=== PATIENT | female | born 1950 | race Caucasian/White ===

== ENCOUNTER 2017-02-27 11:15 | Inpatient (IN) | payer OTHER, BC ==
[2017-02-27] MEDS ORDERED: NS 1,000 ML IV ONE ×2 (11:37→12:52)
[2017-02-27 11:46] LABS: % IMMATURE GRANULYOCYTES 1.1 % (0.0-1.1); ABSOLUTE IMMATURE GRANULOCYTES 0.16 10^3/uL (0.00-0.10); ADD DIFF? NO; ADD MORPH? NO; ADD SCAN? NO; ATYPICAL LYMPHOCYTE FLAG 0 (0-99); FRAGMENT RBC FLAG 0 (0-99); HEMATOCRIT 28.6 % (38.0-47.0); HEMOGLOBIN 9.8 g/dL (12.6-16.3); LEFT SHIFT FLG 0 (0-99); LIPEMIA HEMOLYSIS FLAG 90 (0-99); MEAN CELL HEMOGLOBIN 30.4 pg (27.9-34.1); MEAN CELL HEMOGLOBIN CONCENTR. 34.3 g/dL (32.4-36.7); MEAN CELL VOLUME 88.8 fL (81.5-99.8); PLATELET CLUMPS FLAG 10 (0-99); PLATELET COUNT 197 10^3/uL (150-400); RED BLOOD CELL COUNT 3.22 10^6/uL (4.18-5.33); RED CELL DISTRIBUTION WIDTH 14.5 % (11.5-15.2)
--- NOTE | 2017-02-27 11:47 | CPEKG ---
Heart Rate: 91 RR Interval: 659 P-R Interval: 152 QRSD Interval: 88 QT Interval: 388 QTC Interval: 478 P [place]: 74 QRS [place]: 54 T Wave [place]: 41 EKG Severity - BORDERLINE ECG - EKG Impression: SINUS RHYTHM EKG Impression: BORDERLINE INFERIOR Q WAVES Electronically Signed By: Brenden Cormier 27-Feb-2017 15:46:00
[2017-02-27] MEDS ORDERED: PANTOPRAZOLE SODIUM 80 MG in NS 100 ML IV ONE ×2 (11:57→15:53)
[2017-02-27 12:00] LABS: ALANINE AMINOTRANSFERASE 24 IU/L (9-52); ALBUMIN 3.7 g/dL (3.5-5.0); ALKALINE PHOSPHATASE 51 IU/L (38-126); ANION GAP 16 mEq/L (8-16); ASPARTATE AMINOTRANSFERASE 20 IU/L (14-46); BILIRUBIN,TOTAL 0.6 mg/dL (0.1-1.4); CALCIUM 8.6 mg/dL (8.5-10.4); CARBON DIOXIDE 16 mEq/l (22-31); CHLORIDE 104 mEq/L (97-110); CREATININE 0.6 mg/dL (0.6-1.0); GLOMERULAR FILTRATION RATE > 60; GLUCOSE 151 mg/dL (70-100); POTASSIUM 4.4 mEq/L (3.5-5.2); SODIUM 136 mEq/L (134-144); TOTAL PROTEIN 6.2 g/dL (6.3-8.2)
--- NOTE | 2017-02-27 12:01 | EDPHY ---
H & P Stated Complaint: BLACK STOOLS, WEAK AND DIZZY, FELL YESTERDAY AM Time Seen by Provider: 02/27/17 11:41 HPI/ROS: This patient presents after AP 5 day or so history of dark tarry stools that she thought was from eating bear ease she had a syncopal episode at 4:00 a.m.. She explains that yesterday she started feeling lightheaded orthostatics symptoms when she was upright that improved when she was seated or lying down and then 4:00 a.m. when she got up to go to the bathroom she developed lightheadedness followed by a syncopal episode. She lives alone and she awakened on the floor and then crawled to the bathroom and had another dark tarry stool. She has associated nausea but no vomiting. She reports associated generalized weakness and her friend that brought her in for evaluation reports that she appears more pale than usual today. ROS: Constitutional: Patient felt well until the last 2 days. She reports fatigue as above. HEENT: No complaints she did not strike her head and does not have a headache Pulmonary: No dyspnea. No cough. Cardiovascular: She has not noticed any heart palpitations. No chest pain. GI: No abdominal pain. She does not use NSAIDs. : No complaints Integumentary: Pale skin. No rash. Endocrine: No complaints Neuro: No numbness tingling weakness. No confusion. 10 point ROS is otherwise negative Source: Patient Exam Limitations: No limitations - Personal History Current Tetanus Diphtheria and Acellular Pertussis (TDAP): Yes Tetanus Vaccine Date: < 10 YEARS - Medical/Surgical History Hx Asthma: No Hx Chronic Respiratory Disease: No Hx Diabetes: No Hx Cardiac Disease: No Hx Renal Disease: No Hx Cirrhosis: No Hx Alcoholism: No Hx HIV/AIDS: No Hx Splenectomy or Spleen Trauma: No Other PMH: BAT EXPOSURE, R HIP REPLACEMENT, TUBAL LIGATION - Family History Significant Family History: No pertinent family hx - Social History Smoking Status: Never smoked Alcohol Use: None Drug Use: None Additional Social History: Patient is a . Her from cancer 1 month ago. She lives alone. - Physical Exam Exam: Initial pulses are on 100 initial systolic blood pressure 110 to 115. Other vitals normal After 500 cc normal saline her systolic pressure has improved to 160 on her pulse is in 80s. General Appearance: Alert, no distress. Eyes: Pupils equal and round no pallor or injection. ENT, Mouth: Mucous membranes moist. Respiratory: There are no retractions, lungs are clear to auscultation. Cardiovascular: Regular rate and rhythm. Patient has a 2/6 systolic murmur no JVD. No peripheral edema. Gastrointestinal: Abdomen is soft and nontender, no masses, bowel sounds normal. Rectal exam: No hemorrhoids. No tenderness or masses. She has melena-dark tarry stool that is heme-positive on guaiac testing. Neurological: GCS 15 with no focal sensory motor deficits Skin: Warm and dry, no rashes, pale Musculoskeletal: Neck is supple nontender. Extremities are symmetrical, full range of motion. Psychiatric: Mood and affect normal DIFFERENTIAL DIAGNOSIS: After history and physical exam differential diagnosis was considered for upper GI bleed, colon CA, gastric CA, anemia, dysrhythmia, mi Constitutional: Initial Vital Signs O2 Sat (%) 100 02/27/17 11:20 O2 Delivery Mode Room Air O2 (L/minute) 2 Allergies/Adverse Reactions: No Known Allergies Allergy (Unverified 02/27/17 11:46) Home Medications: Medication Instructions Recorded NK [No Known Home Meds] 02/27/17 Medical Decision Making - Diagnostics EKG Interpretation: 12 lead EKG performed at 11:45 a.m. reveals sinus rhythm at 91 Intervals: Normal throughout [place]: Normal throughout ST segments: Normal throughout overall assessment normal sinus rhythm without evidence of acute ischemia by my interpretation ED Course/Re-evaluation: IV normal saline bolus Protonix 80 mg IV Hospitalist and GI specialist paged at noon. I spoke with Dr. Gordon Enriquez- hospitalist accepts the patient Dr. Londono in for admission. I spoke with Angel Johnson.-GI doc on-call Shortly after finishing her 1st L and shortly after conversation with Dr. Johnson the patient developed some hemodynamic instability with pulse increasing to the low 1 teens and systolic pressure down to 96 2nd L started 2nd line is established. 200 mL into her 2nd L patient's systolic pressure is 116. She remains mildly tachycardic. I spoke with Rowena Bay-emergency physician at [facility] accepts the patient for direct transfer and we spoke with the house [facility] to requests an ICU bed I spoke with Dr. Johnson regarding the change in disposition plan to the ICU. At the time of EMS arrival patient's systolic pressure is improved to 116 to 122. Her pulse remains 100-110. Patient complains of generalized weakness but no other new complaints. Nausea controlled with Zofran. Discussion: Unstable GI bleed with melena anemia going to emergency department enroute to ICU pending issue bed for definitive treatment by Dr. Johnson- shark biologist. - Data Points Laboratory Results: Laboratory Results 02/27/17 11:30 02/27/17 11:30 02/27/17 02/27/17 02/27/17 11:30 11:30 11:30 WBC RBC Hgb Hct MCV MCH MCHC RDW Plt Count MPV Neut % (Auto) Lymph % (Auto) [place] % (Auto) Eos % (Auto) Baso % (Auto) Nucleat RBC Rel Count Absolute Neuts (auto) Absolute Lymphs (auto) Absolute Monos (auto) Absolute Eos (auto) Absolute Basos (auto) Absolute Nucleated RBC Immature Gran % Immature Gran # PT INR APTT Sodium Potassium Chloride Carbon Dioxide Anion Gap BUN Creatinine Estimated GFR Glucose Calcium Total Bilirubin AST ALT Alkaline Phosphatase Troponin I < 0.012 ng/mL ng/mL (0-0.034) Total Protein Albumin Stool Occult Bld Scrn POSITIVE H (NEGATIVE) Patient ABO/Rh O POSITIVE Antibody Screen NEGATIVE Crossmatch IS Only See Detail 02/27/17 02/27/17 02/27/17 11:30 11:30 11:30 WBC 14.77 10^3/uL H 10^3/uL (3.80-9.50) RBC 3.22 10^6/uL L 10^6/uL (4.18-5.33) Hgb 9.8 g/dL L g/dL (12.6-16.3) Hct 28.6 % L % (38.0-47.0) MCV 88.8 fL fL (81.5-99.8) MCH 30.4 pg pg (27.9-34.1) MCHC 34.3 g/dL g/dL (32.4-36.7) RDW 14.5 % % (11.5-15.2) Plt Count 197 10^3/uL 10^3/uL (150-400) MPV 10.0 fL fL (8.7-11.7) Neut % (Auto) 83.7 % H % (39.3-74.2) Lymph % (Auto) 12.2 % L % (15.0-45.0) [place] % (Auto) 2.9 % L % (4.5-13.0) Eos % (Auto) 0.0 % L % (0.6-7.6) Baso % (Auto) 0.1 % L % (0.3-1.7) Nucleat RBC Rel Count 0.0 % % (0.0-0.2) Absolute Neuts (auto) 12.36 10^3/uL H 10^3/uL (1.70-6.50) Absolute Lymphs (auto) 1.80 10^3/uL 10^3/uL (1.00-3.00) Absolute Monos (auto) 0.43 10^3/uL 10^3/uL (0.30-0.80) Absolute Eos (auto) 0.00 10^3/uL L 10^3/uL (0.03-0.40) Absolute Basos (auto) 0.02 10^3/uL 10^3/uL (0.02-0.10) Absolute Nucleated RBC 0.00 10^3/uL 10^3/uL (0-0.01) Immature Gran % 1.1 % % (0.0-1.1) Immature Gran # 0.16 10^3/uL H 10^3/uL (0.00-0.10) PT 13.8 SEC SEC (12.0-15.0) INR 1.09 (0.83-1.16) APTT 27.9 SEC SEC (23.0-38.0) Sodium 136 mEq/L mEq/L (134-144) Potassium 4.4 mEq/L mEq/L (3.5-5.2) Chloride 104 mEq/L mEq/L (97-110) Carbon Dioxide 16 mEq/l L mEq/l (22-31) Anion Gap 16 mEq/L mEq/L (8-16) BUN 42 mg/dL H mg/dL (7-23) Creatinine 0.6 mg/dL mg/dL (0.6-1.0) Estimated GFR > 60 Glucose 151 mg/dL H mg/dL (70-100) Calcium 8.6 mg/dL mg/dL (8.5-10.4) Total Bilirubin 0.6 mg/dL mg/dL (0.1-1.4) AST 20 IU/L IU/L (14-46) ALT 24 IU/L IU/L (9-52) Alkaline Phosphatase 51 IU/L IU/L (38-126) Troponin I Total Protein 6.2 g/dL L g/dL (6.3-8.2) Albumin 3.7 g/dL g/dL (3.5-5.0) Stool Occult Bld Scrn Patient ABO/Rh Antibody Screen Crossmatch IS Only Medications Given: Discontinued Medications Sodium Chloride (Ns) 1,000 mls @ 0 mls/hr IV ONCE ONE PRN Reason: Wide Open Stop: 02/27/17 11:38 Last Admin: 02/27/17 11:20 Dose: 1,000 mls Pantoprazole Sodium 80 mg/ (Sodium Chloride) 100 mls @ 200 mls/hr IV EDNOW ONE Stop: 02/27/17 12:26 Last Admin: 02/27/17 12:13 Dose: 100 mls Departure - Departure Disposition: [facility] Inpatient Acute Clinical Impression: GI bleed Qualifiers: GI bleed type/associated pathology: melena Qualified Code(s): K92.1 - Melena Syncope Qualifiers: Syncope type: unspecified Qualified Code(s): R55 - Syncope and collapse Anemia Qualifiers: Anemia type: other cause Other causes of anemia: other cause, not classified Qualified Code(s): D64.89 - Other specified anemias Condition: Serious
[2017-02-27 12:16] LABS: INR 1.09 (0.83-1.16); PROTIME(PATIENT) 13.8 SEC (12.0-15.0)
[2017-02-27 12:17] LABS: APTT 27.9 SEC (23.0-38.0)
[2017-02-27] MEDS ORDERED: ONDANSETRON 4 MG/2 ML VIAL IVP ONE (12:50)
[2017-02-27] MEDS ORDERED: ONDANSETRON 4 MG/2 ML VIAL ONE (12:56)
--- NOTE | 2017-02-27 14:42 | EDPHY ---
H & P Stated Complaint: BLACK STOOLS, WEAK AND DIZZY, FELL YESTERDAY AM Time Seen by Provider: 02/27/17 11:41 HPI/ROS: CHIEF COMPLAINT: GI Bleed, Transfer to ICU HISTORY OF PRESENT ILLNESS: This patient is a 66 year old female presenting following a 5 day history of black tarry stools. Yesterday, she began to note lightheadedness and weakness. She was seen at the [facility] ED by Dr. Cormier this morning, and was originally to be directly admitted, but is currently waiting for an available bed in the ICU. Dr. Cormier spoke with MEDICAL APPOINTMENT CLERK Elizabeth regarding admission. She was transferred by ambulance from [facility]. REVIEW OF SYSTEMS: A 10 point review of systems was performed and is negative with the exception of the elements mentioned in the history of present illness. - Personal History Current Tetanus Diphtheria and Acellular Pertussis (TDAP): Yes Tetanus Vaccine Date: < 10 YEARS - Medical/Surgical History Hx Asthma: No Hx Chronic Respiratory Disease: No Hx Diabetes: No Hx Cardiac Disease: No Hx Renal Disease: No Hx Cirrhosis: No Hx Alcoholism: No Hx HIV/AIDS: No Hx Splenectomy or Spleen Trauma: No Other PMH: BAT EXPOSURE, R HIP REPLACEMENT, TUBAL LIGATION - Family History Significant Family History: No pertinent family hx - Social History Smoking Status: Never smoked - Physical Exam Exam: General Appearance: Alert, no acute distress. Vital signs on arrival were blood pressure of 111/72, heart rate 102, respiratory rate 18, oxygen saturation 100% on 2 L nasal cannula. Eyes: Pupils equal and round, scleral pallor. ENT, Mouth: Mucous membranes are slightly dry, no oropharyngeal erythema or edema. Neck: No lymphadenopathy, supple. Respiratory: Lungs are clear to auscultation; no wheezes, rales, or rhonchi. Cardiovascular: Tachycardic. Delete Gastrointestinal: Abdomen is obese, soft and non tender. Skin: Pale. Slightly cool distally and dry, no rashes. Neurological: Alert and oriented. Moving all four extremities spontaneously. Constitutional: Initial Vital Signs O2 Sat (%) 100 02/27/17 11:20 O2 Delivery Mode Room Air O2 (L/minute) 2 Allergies/Adverse Reactions: Sulfa (Sulfonamide Antibiotics) Allergy (Verified 02/27/17 17:53) Home Medications: Medication Instructions Recorded NK [No Known Home Meds] 02/27/17 Medical Decision Making ED Course/Re-evaluation: This patient is a 66 year old female awaiting transfer to the ICU for management of anemia and syncopal episode secondary to GI bleeding. She is currently tachycardic at 110, but has a stable BP at 115/67. She was hypotensive with systolic blood pressure of 90/5 earlier at [facility]. 14:58 Spoke with hospitalist service regarding admission to the ICU. Critical Care Time: I spent a total of [30] minutes of critical care time in obtaining history, performing a physical exam, bedside monitoring of interventions, collecting and interpreting tests and discussion with consultants but not including time spent performing procedures. Midlevel was not involved in her care. At the time of my initial evaluation her systolic blood pressure was 110 to 115. Her skin was noticeably pale and slightly cool to touch distally. She was tachycardic with heart rate of 106. Lungs are clear to auscultation anterolaterally. Her abdomen was soft, nontender, nondistended. She was mentating normally. During her stay in the emergency department her hemoglobin and hematocrit declined markedly from 9.8 to 4.9 and 28.6 to 15. She was at risk for cardiovascular deterioration and exsanguination. 3 units of packed red blood cells were ordered for transfusion. She is scheduled for upper endoscopy with Dr. Angel Johnson. I have spoken with him on the phone. She did receive 80 mg pantoprazole IV and a continuous infusion of pantoprazole was started in the emergency department. - Data Points Laboratory Results: Laboratory Results 02/27/17 11:30 02/27/17 11:30 02/27/17 02/27/17 02/27/17 11:30 11:30 11:30 WBC RBC Hgb Hct MCV MCH MCHC RDW Plt Count MPV Neut % (Auto) Lymph % (Auto) [place] % (Auto) Eos % (Auto) Baso % (Auto) Nucleat RBC Rel Count Absolute Neuts (auto) Absolute Lymphs (auto) Absolute Monos (auto) Absolute Eos (auto) Absolute Basos (auto) Absolute Nucleated RBC Immature Gran % Immature Gran # PT INR APTT Sodium Potassium Chloride Carbon Dioxide Anion Gap BUN Creatinine Estimated GFR Glucose Calcium Total Bilirubin AST ALT Alkaline Phosphatase Troponin I < 0.012 ng/mL ng/mL (0-0.034) Total Protein Albumin Stool Occult Bld Scrn POSITIVE H (NEGATIVE) Patient ABO/Rh O POSITIVE Antibody Screen NEGATIVE Crossmatch IS Only See Detail 02/27/17 02/27/17 02/27/17 11:30 11:30 11:30 WBC 14.77 10^3/uL H 10^3/uL (3.80-9.50) RBC 3.22 10^6/uL L 10^6/uL (4.18-5.33) Hgb 9.8 g/dL L g/dL (12.6-16.3) Hct 28.6 % L % (38.0-47.0) MCV 88.8 fL fL (81.5-99.8) MCH 30.4 pg pg (27.9-34.1) MCHC 34.3 g/dL g/dL (32.4-36.7) RDW 14.5 % % (11.5-15.2) Plt Count 197 10^3/uL 10^3/uL (150-400) MPV 10.0 fL fL (8.7-11.7) Neut % (Auto) 83.7 % H % (39.3-74.2) Lymph % (Auto) 12.2 % L % (15.0-45.0) Hale % (Auto) 2.9 % L % (4.5-13.0) Eos % (Auto) 0.0 % L % (0.6-7.6) Baso % (Auto) 0.1 % L % (0.3-1.7) Nucleat RBC Rel Count 0.0 % % (0.0-0.2) Absolute Neuts (auto) 12.36 10^3/uL H 10^3/uL (1.70-6.50) Absolute Lymphs (auto) 1.80 10^3/uL 10^3/uL (1.00-3.00) Absolute Monos (auto) 0.43 10^3/uL 10^3/uL (0.30-0.80) Absolute Eos (auto) 0.00 10^3/uL L 10^3/uL (0.03-0.40) Absolute Basos (auto) 0.02 10^3/uL 10^3/uL (0.02-0.10) Absolute Nucleated RBC 0.00 10^3/uL 10^3/uL (0-0.01) Immature Gran % 1.1 % % (0.0-1.1) Immature Gran # 0.16 10^3/uL H 10^3/uL (0.00-0.10) PT 13.8 SEC SEC (12.0-15.0) INR 1.09 (0.83-1.16) APTT 27.9 SEC SEC (23.0-38.0) Sodium 136 mEq/L mEq/L (134-144) Potassium 4.4 mEq/L mEq/L (3.5-5.2) Chloride 104 mEq/L mEq/L (97-110) Carbon Dioxide 16 mEq/l L mEq/l (22-31) Anion Gap 16 mEq/L mEq/L (8-16) BUN 42 mg/dL H mg/dL (7-23) Creatinine 0.6 mg/dL mg/dL (0.6-1.0) Estimated GFR > 60 Glucose 151 mg/dL H mg/dL (70-100) Calcium 8.6 mg/dL mg/dL (8.5-10.4) Total Bilirubin 0.6 mg/dL mg/dL (0.1-1.4) AST 20 IU/L IU/L (14-46) ALT 24 IU/L IU/L (9-52) Alkaline Phosphatase 51 IU/L IU/L (38-126) Troponin I Total Protein 6.2 g/dL L g/dL (6.3-8.2) Albumin 3.7 g/dL g/dL (3.5-5.0) Stool Occult Bld Scrn Patient ABO/Rh Antibody Screen Crossmatch IS Only Medications Given: Discontinued Medications Sodium Chloride (Ns) 1,000 mls @ 0 mls/hr IV ONCE ONE PRN Reason: Wide Open Stop: 02/27/17 11:38 Last Admin: 02/27/17 11:20 Dose: 1,000 mls Pantoprazole Sodium 80 mg/ (Sodium Chloride) 100 mls @ 200 mls/hr IV EDNOW ONE Stop: 02/27/17 12:26 Last Admin: 02/27/17 12:13 Dose: 100 mls Sodium Chloride (Ns) 1,000 mls @ 0 mls/hr IV ONCE ONE PRN Reason: Wide Open Stop: 02/27/17 12:53 Last Admin: 02/27/17 12:30 Dose: 1,000 mls Ondansetron HCl (Zofran) 4 mg IVP ONCE ONE Stop: 02/27/17 12:51 Last Admin: 02/27/17 12:55 Dose: 4 mg Departure - Departure Disposition: [facility] Inpatient Acute Clinical Impression: GI bleed Qualifiers: GI bleed type/associated pathology: melena Qualified Code(s): K92.1 - Melena Syncope Qualifiers: Syncope type: unspecified Qualified Code(s): R55 - Syncope and collapse Anemia Qualifiers: Anemia type: other cause Other causes of anemia: other cause, not classified Qualified Code(s): D64.89 - Other specified anemias Condition: Serious Report Scribed for: Jamia Wright Report Scribed by: Latisha Tay Date of Report: 02/27/17 Time of Report: 14:56 Physician Review and Approval Statement: 02/27/17 18:15 Portions of this note were transcribed by the medical recruiter. I, Dr. Jamia Wright, personally performed the history, physical exam, and medical decision- making; and confirmed the accuracy of the information in the transcribed note.
[2017-02-27 15:07] LABS: % IMMATURE GRANULYOCYTES 1.6 % (0.0-1.1); ABSOLUTE IMMATURE GRANULOCYTES 0.26 10^3/uL (0.00-0.10); ADD DIFF? NO; ADD MORPH? YES; ADD SCAN? NO; ATYPICAL LYMPHOCYTE FLAG 0 (0-99); FRAGMENT RBC FLAG 0 (0-99); LEFT SHIFT FLG 10 (0-99); LIPEMIA HEMOLYSIS FLAG 80 (0-99); MEAN CELL HEMOGLOBIN 30.4 pg (27.9-34.1); MEAN CELL HEMOGLOBIN CONCENTR. 32.7 g/dL (32.4-36.7); MEAN CELL VOLUME 93.2 fL (81.5-99.8); PLATELET CLUMPS FLAG 0 (0-99); PLATELET COUNT 136 10^3/uL (150-400); RED BLOOD CELL COUNT 1.61 10^6/uL (4.18-5.33); RED CELL DISTRIBUTION WIDTH 14.6 % (11.5-15.2)
[2017-02-27 15:32] LABS: HEMOGLOBIN 4.9 g/dL (12.6-16.3)
--- NOTE | 2017-02-27 15:34 | CPEKG ---
Heart Rate: 106 RR Interval: 566 P-R Interval: 156 QRSD Interval: 88 QT Interval: 376 QTC Interval: 500 P [place]: 60 QRS [place]: 49 T Wave [place]: 43 EKG Severity - ABNORMAL ECG - EKG Impression: SINUS TACHYCARDIA EKG Impression: CONSIDER POSTERIOR WALL INVOLVEMENT EKG Impression: BORDERLINE PROLONGED QT INTERVAL Electronically Signed By: Brenden Cormier 27-Feb-2017 15:47:04
[2017-02-27] MEDS ORDERED: LORazepam 2 MG/ML INJ IVP PRN (15:48)
[2017-02-27] MEDS ORDERED: ACETAMINOPHEN 325 MG TAB PO PRN (15:48)
[2017-02-27] MEDS ORDERED: HYDROmorphONE/DILAUDID 1 MG/ML SYR IVP PRN (15:54)
[2017-02-27] MEDS ORDERED: ONDANSETRON 4 MG/2 ML VIAL IVP PRN (15:54)
[2017-02-27] MEDS ORDERED: NS 1,000 ML IV SCH (16:00)
[2017-02-27] MEDS ORDERED: fentaNYL 100 MCG/2 ML INJ ONE (16:05)
[2017-02-27] MEDS ORDERED: MIDAZOLAM 2 MG/2 ML VIAL ONE (16:05)
[2017-02-27 16:24] LABS: HEMATOCRIT 16.2 % (38.0-47.0); HEMOGLOBIN 5.4 g/dL (12.6-16.3)
[2017-02-27 16:37] LABS: PLATELET ESTIMATE DECREASED (ADEQ); POLYCHROMASIA 1+
[2017-02-27 16:39] LABS: MICROCYTES 1+
--- NOTE | 2017-02-27 17:12 | GCON ---
[f rep st] CONSULTATION GI INPATIENT CONSULTATION. DATE OF CONSULTATION: 02/27/2017 CHIEF COMPLAINT: I was kindly requested to see the patient by Dr. Brenden Cormier in consultation for a chief complaint of anemia. HISTORY OF PRESENT ILLNESS: The patient is a 66-year-old white female, who for the last 5 days has had black, tarry stools. With this, she developed syncope. She denies aspirin, nonsteroidals. She does not take much in the way of medications. Colonoscopy just last year with Dr. Wick was unremarkable, except for a small hyperplastic polyp. At that time, she received 100 mcg of fentanyl and 4 mg of Versed. PAST MEDICAL HISTORY: 1. As above. 2. Right hip replacement. 3. Tubal ligation. 4. Otherwise, noncontributory. OUTPATIENT MEDICATIONS: None significant. ALLERGIES: No known drug allergies. SOCIAL HISTORY: Negative for alcoholism. FAMILY HISTORY: Negative for similar bleeding. REVIEW OF SYSTEMS: Positive pertinent Review of Systems as per my HPI. A complete Review of Systems is otherwise negative. PHYSICAL EXAM: CONSTITUTIONAL: A weak appearing, very pale woman. SKIN: Pale, dry. EYES: Pupils equal, round, and react to light and accommodation. EARS, NOSE, MOUTH AND THROAT: Moist mucosa, no masses seen. CARDIOVASCULAR: Normal S2, normal PMI. RESPIRATORY: Lungs clear to auscultation and percussion anteriorly. GASTROINTESTINAL: Abdomen soft, nontender. NEUROLOGIC: Grossly nonfocal, cranial nerves grossly intact. PSYCHIATRIC: Orientation, insight appropriate. MUSCULOSKELETAL: Grossly normal throughout, normal station. LABORATORIES: Include a white count of 16.15. Hematocrit 28.6%, which is now dropped to 15%. Platelet count 136,000. Normal coags. Normal liver function tests. Normal electrolytes. Stool Hemoccult positive. ASSESSMENT: Melena. Suspect due to an upper gastrointestinal source, especially with her significant anemia, unremarkable colonoscopy just last year. Somewhat unusual and concerning, as she does not use aspirin or nonsteroidals. An ulcer from H pylori is possible. Stomach cancer is possible. Dieulafoy's lesion is possible. PLAN: 1. Urgent transfusion of 3 units of blood. 2. Protonix drip. 3. Urgent endoscopy. Certainly, in terms of endoscopy, she is at increased risk for this procedure, with her significant anemia, ICU status, recent syncope , etc. However, suspected benefits outweigh the risks, and suspect she will do well. Thank you for allowing me to help in the care of this patient. /[id number]/MODL MTDD
[2017-02-27] MEDS: PANTOPRAZOLE SODIUM 80 MG in NS 100 ML IV SCH (17:35)
[2017-02-27] MEDS ORDERED: EPINEPHrine 1 MG/10 ML SYR IVP ONE (17:40)
--- NOTE | 2017-02-27 18:22 | GHP ---
[f rep st] HISTORY AND PHYSICAL DATE OF ADMISSION: 02/27/2017 CHIEF COMPLAINT: Recurrent syncope and dizziness in the setting of dark black stools for about 1 we ek. HISTORY: This is a 66-year-old female, who has a relatively limited past medical history, and prese nts with very dark bowel movements and nausea for about the last week, as well as dizziness with rec urrent syncope over the last couple of days. She notes she initially thought that her dark stools w ere related to eating lots of blackberries and blueberries. She had some associated nausea, but no vomiting. Over the weekend she had an episode where she got up to go to the bathroom and then faint ed, and was unable to get herself up off the floor. This occurred on Monday, and she notes that s he crawled to the bathroom and slept on the bathroom floor. This occurred again Monday, leading to her again sleeping on the bathroom floor. Today, she continued to feel dizzy. Given that she had r ecurrent syncopal events 2 days in a row, she decided to come to Urgent Care. In the Urgent Care, s he was noted to be anemic and was sent to the Emergency Department pending admission. She notes chidi t she does not use aspirin or NSAIDs. In fact, uses no medicines at all. She denies heartburn. Sh e denies significant alcohol use. PAST MEDICAL HISTORY: None. PAST SURGICAL HISTORY: 1. Right hip replacement. 2. Tonsillectomy. 3. Nasal surgery. 4. Cataract surgery. 5. Tubal ligation. FAMILY HISTORY: This is reviewed and is noncontributory. SOCIAL HISTORY: The patient is a never smoker. She denies drug use. She lives alone. She is wido wed. She denies alcohol use except very rarely. REVIEW OF SYSTEMS: A 10-point review of systems obtained, negative except as per HPI. HOME MEDICATIONS: None. ALLERGIES: None. PHYSICAL EXAM: VITAL SIGNS: BP 113/60, heart rate 105, respiratory rate 19, O2 sats 94% on 4 L, te mperature 36.7. GENERAL APPEARANCE: This is a pale, ill-appearing female. She is awake, but has h er eyes closed, lying still. EYES: Anicteric. HENT: Oropharynx clear. Mucous membranes are dry. CARDIOVASCULAR: Tachycardic, regular, no MRG. PULMONARY: CTA bilaterally to anterior exam. ABD OMEN: Soft, nontender. Positive bowel sounds. EXTREMITIES: No clubbing, cyanosis, or edema. SKI N: Pale, but warm. CLINICAL DATA: Labs reviewed. Significant for initial white blood cell count of 14.7 with a hemogl obin and hematocrit of 9.8 and 28.6, on repeat found to be 4.9 and 15. Platelets of 136. Coag stud ies are unremarkable. BUN of 42, creatinine 0.6. Stool occult blood screen is positive. EKG, personally reviewed and interpreted, shows sinus tachycardia. There is some baseline wander, b ut no clear ST-segment abnormalities. ASSESSMENT/PLAN: This is a 66-year-old female without significant past medical history, who present s with about 1 week of melena and recurrent syncope in the setting of profound anemia. 1. Anemia with significant drop since admission and quite symptomatic, in the setting of presumed a cute upper gastrointestinal bleed. She has been started on PPI drip. She will be transfused 3 unit s of packed red blood cells. GI has been consulted, and plans to perform EGD later this afternoon. 2. Upper gastrointestinal bleed, as per above. She does not have significant risk factors for bronwyn snadra ulcers or varices that I am aware of. Again, she has been started on PPI drip, and GI plans to scope later today. 3. Syncope. This in the setting of profound anemia and what sounds to be a fairly rapid blood loss . She will be monitored on telemetry. However, I do suspect this is simply hemodynamically mediate d. 4. Chest pain. This developed while patient was in the Emergency Department, and again in the sett ing of anemia is not significantly surprising. We will trend troponins. EKG is not ischemic appear ing. 5. Hyperglycemia. I suspect this is a stress response. Her glucoses have always been normal in e past. We will trend while inhouse. DISPOSITION: 1. Inpatient status. High risk presenting issue requiring urgent endoscopic evaluation by Gastroen andiology and ICU stay. 2. The patient is new to my care. Old records reviewed and summarized as per HPI and past medical history. Care plan reviewed with ER physician and Gastroenterology, including plans for EGD this af srinivasan. /[id number]/MODL
--- NOTE | 2017-02-27 18:57 | GPN ---
[f rep st] PROCEDURE NOTE DATE OF PROCEDURE: 02/27/2017 GASTROINTESTINAL INPATIENT PROCEDURE: Upper endoscopy. PREPROCEDURE DIAGNOSIS: Melena. POSTPROCEDURE DIAGNOSIS: Submucosal mass (see below). PREMEDICATION: Fentanyl 100 mcg IV, Versed 3.5 mg IV. COMPLICATIONS: None. FINDINGS: After informed consent was obtained, the patient was placed in left lateral decubitus position. Video upper endoscope was placed under direct visualization and advanced. Esophagus was normal. Duodenum was normal. The stomach contained a very large clot in the dependent portion. In the cardia, an approximately 5 cm mass was seen, half of it being covered with clot. The other half appeared to be submucosal in nature. This was on the greater curve. The GE junction was at 37 cm. There was a small hiatal hernia, ending at 40 cm. The beginning of this mass was at 42 cm. IMPRESSION: Large mass, as above. Partially obscured by blood clot, but almost certainly appears to be submucosal in nature. I suspect the part we could not see, covered with blood, represents an adherent clot on an ulcerated part of this mass. 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 At this time, I do not necessarily see any continued, active bleeding; however, she certainly had a very large bleed, and is at very high risk to rebleed. No endoscopic therapy is available for this type of ulcerated mass. PLAN: 1. We will continue n.p.o. except meds, sips of water. 2. We will continue Protonix IV drip. 3. Continue serial hematocrits, transfusion of blood as needed. 4. I will consult Surgery for surgical removal of the above. Thank you for allowing me to continue helping in the management of this patient. /[id number]/MODL MTDD
--- NOTE | 2017-02-27 19:19 | SOAPPROG ---
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 VS STABLE/ HCT 16 BUT BEING TRANSFUSED ALERT COOPERATIVE/ RISKS AND OPTIONS FULLY DISCUSSED/ WILL NEED PARTIAL GASTRECTOMY IN AM NONICTERIC/ CHEST CLEAR/ COR RR/ ABD SOFT Plan:SURGERY IN AM / TRANSFUSE TONITE 02/27/17 19:15 Objective: Vital Signs Temp Pulse Resp BP Pulse Ox 36.7 C 84 14 116/71 100 02/27/17 16:45 02/27/17 18:00 02/27/17 18:00 02/27/17 18:00 02/27/17 18:00 Laboratory Results 02/27/17 15:31 02/26/17 02/27/17 02/28/17 05:59 05:59 05:59 Intake Total 3800 Balance 3800 PT 13.8 SEC (12.0-15.0) 02/27/17 11:30 INR 1.09 (0.83-1.16) 02/27/17 11:30 ICD10 Worksheet Patient Problems: Problems Problem Status Onset Anemia Acute GI bleed Acute Syncope Acute Arthritis of right hip Acute
[2017-02-27 20:19] LABS: HEMATOCRIT 29.1 % (38.0-47.0); HEMOGLOBIN 9.9 g/dL (12.6-16.3)
--- NOTE | 2017-02-27 23:56 | CPEKG ---
Heart Rate: 105 RR Interval: 571 P-R Interval: 136 QRSD Interval: 82 QT Interval: 356 QTC Interval: 471 P Triplett: 69 QRS Triplett: 70 T Wave Triplett: 65 EKG Severity - ABNORMAL ECG - EKG Impression: SINUS TACHYCARDIA EKG Impression: ANTEROLATERAL ST ABNORMALITIES EKG Impression: PROLONGED QT INTERVAL EKG Impression: PROBABLE INFERIOR INFARCT, OLD Electronically Signed By: Eva Ba 28-Feb-2017 09:58:21
[2017-02-28 00:08] LABS: HEMATOCRIT 25.2 % (38.0-47.0); HEMOGLOBIN 8.8 g/dL (12.6-16.3)
[2017-02-28] MEDS ORDERED: NS 500 ML IV ONE (00:49)
[2017-02-28] MEDS ORDERED: PROMETHAZINE HCL 25 MG TAB PO PRN (01:30)
[2017-02-28 01:42] LABS: HEMATOCRIT 18.7 % (38.0-47.0)
[2017-02-28 01:44] LABS: HEMOGLOBIN 6.3 g/dL (12.6-16.3)
--- NOTE | 2017-02-28 04:42 | HOSPPROG ---
Hospitalist Progress Note Assessment/Plan: Called to bedside by RN at 4:15 with large amount of bloody diarrhea, hypotension and dizziness, which is a change in clinical status. Had not been informed until now that she has been transfused 4 units RBCs and now receiving 5th. UOP approximately 500cc over the shift. Exam: SBP 90, HR 110s Gen: somnolent, very pale, arouses to voice HEENT: PERRLA CV: RRR, tachy Lung: CTA anteriorly GI: soft, mild TTP, quite BS. dark, watery melanic stool pooling on power Musk: generalized weakness A&P: 1. UGIB: active bleeding due to stomach mass. -Discussed case with Dr. Vincent who plans for surgery now. Transfuse platelets, FFP, additional blood. stat labs 2. Hypotension: transfusions as above. IO now in place. Called Dr. Perez's to assist with central line. Levophed 3. Acute blood loss anemia: plan as above I have called and spoke with her friend Miya here in [facility] and sister in [place] to update on critical clinical status and treatment plan Critical care time spent: 60 min spent bedside evaluating pt, labs, consulting with Dr. Vincent, Dr. Perez and counseling pt and family on tx plan. Objective: Vital Signs Temp Pulse Resp BP Pulse Ox 36.7 C 109 H 15 108/56 L 95 02/27/17 16:45 02/28/17 01:00 02/28/17 01:00 02/28/17 01:00 02/28/17 01:00 Laboratory Results 02/28/17 01:20 02/26/17 02/27/17 02/28/17 05:59 05:59 05:59 Intake Total 3800 Output Total 225 Balance 3575 PT 13.8 SEC (12.0-15.0) 02/27/17 11:30 INR 1.09 (0.83-1.16) 02/27/17 11:30 ICD10 Worksheet Patient Problems: Problems Problem Status Onset Anemia Acute GI bleed Acute Syncope Acute Arthritis of right hip Acute
[2017-02-28] MEDS ORDERED: NOREPINEPHRINE BITARTRATE 4 MG in D5W 500 ML IV SCH (05:00)
[2017-02-28] MEDS ORDERED: PROPOFOL 200 MG/20 ML VIAL ONE ×2 (05:00)
[2017-02-28] MEDS ORDERED: fentaNYL 100 MCG/2 ML INJ ONE (05:00)
[2017-02-28] MEDS ORDERED: ROCURONIUM 50 MG/5 ML VIAL ONE (05:01)
[2017-02-28] MEDS ORDERED: LIDOCAINE 2% 100 MG/5 ML SYR ONE (05:01)
[2017-02-28] MEDS ORDERED: NOREPINEPHRINE/NS 4 MG/500 ML BAG IV ONE ×2 (05:03→05:07)
[2017-02-28] MEDS ORDERED: NOREPINEPHRINE/NS 500 ML IV SCH (05:30)
[2017-02-28 05:31] LABS: ABSOLUTE NRBC COUNT 0.13 10^3/uL (0-0.01); ADD DIFF? YES; ADD MORPH? NO; ADD SCAN? NO; ATYPICAL LYMPHOCYTE FLAG 0 (0-99); FRAGMENT RBC FLAG 0 (0-99); HEMATOCRIT 25.5 % (38.0-47.0); HEMOGLOBIN 8.6 g/dL (12.6-16.3); LEFT SHIFT FLG 30 (0-99); LIPEMIA HEMOLYSIS FLAG 80 (0-99); MEAN CELL HEMOGLOBIN 30.1 pg (27.9-34.1); MEAN CELL HEMOGLOBIN CONCENTR. 33.7 g/dL (32.4-36.7); MEAN CELL VOLUME 89.2 fL (81.5-99.8); MEAN PLATELET VOLUME 11.2 fL (8.7-11.7); PLATELET CLUMPS FLAG 10 (0-99); PLATELET COUNT 63 10^3/uL (150-400); RED BLOOD CELL COUNT 2.86 10^6/uL (4.18-5.33); RED CELL DISTRIBUTION WIDTH 14.5 % (11.5-15.2)
--- NOTE | 2017-02-28 05:34 | SOAPPROG ---
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 VS STABLE/ HCT 16 BUT BEING TRANSFUSED ALERT COOPERATIVE/ RISKS AND OPTIONS FULLY DISCUSSED/ WILL NEED PARTIAL GASTRECTOMY IN AM NONICTERIC/ CHEST CLEAR/ COR RR/ ABD SOFT Plan:SURGERY IN AM / TRANSFUSE TONITE 02/27/17 19:15 02/28/17 05:29 PT REBLED THIS AM/ HYPOTENSIVE/ LETHARGIC/ DECREASED UO PALE/ DRY MUCUS MEMBRANES/ NONICTERIC CHEST CLEAR/ COR RR ABD SOFT, NONTENDER/ EXTREMWEAK PULSES SKIN DRY/ NEURO LETHARGIC BUT SYMMETRIC WILL GO TO OR STAT / VOLUME RESUSCITATION NOW LEFT SUBCLAVIAN TRIPLE LUMEN PLACED RISKS AND OPTIONS FULLY DISCUSSED INCLUDING AND SHE AGREES WITH SURGERY 45 MIN CRITICAL CARE DONE Objective: Vital Signs Temp Pulse Resp BP Pulse Ox 36.7 C 114 H 15 91/63 L 100 02/27/17 16:45 02/28/17 04:00 02/28/17 04:00 02/28/17 04:00 02/28/17 04:00 02/26/17 02/27/17 02/28/17 05:59 05:59 05:59 Intake Total 4585 Output Total 225 Balance 4360 PT 13.8 SEC (12.0-15.0) 02/27/17 11:30 INR 1.09 (0.83-1.16) 02/27/17 11:30 ICD10 Worksheet Patient Problems: Problems Problem Status Onset Anemia Acute GI bleed Acute Syncope Acute Arthritis of right hip Acute
[2017-02-28 05:36] LABS: INR 1.74 (0.83-1.16); PROTIME(PATIENT) 20.4 SEC (12.0-15.0)
[2017-02-28 05:37] LABS: APTT 27.2 SEC (23.0-38.0)
[2017-02-28 05:42] LABS: ALANINE AMINOTRANSFERASE 27 IU/L (9-52); ALBUMIN 1.3 g/dL (3.5-5.0); ALKALINE PHOSPHATASE 26 IU/L (38-126); ANION GAP 3 mEq/L (8-16); ASPARTATE AMINOTRANSFERASE 27 IU/L (14-46); BILIRUBIN,TOTAL 0.9 mg/dL (0.1-1.4); CALCIUM 6.1 mg/dL (8.5-10.4); CARBON DIOXIDE 16 mEq/l (22-31); CHLORIDE 120 mEq/L (97-110); CREATININE 0.7 mg/dL (0.6-1.0); GLOMERULAR FILTRATION RATE > 60; GLUCOSE 172 mg/dL (70-100); POTASSIUM 4.3 mEq/L (3.5-5.2); SODIUM 139 mEq/L (134-144); TOTAL PROTEIN 2.7 g/dL (6.3-8.2)
[2017-02-28] MEDS ORDERED: MIDAZOLAM 2 MG/2 ML VIAL ONE (05:44)
[2017-02-28 06:07] LABS: PLATELET ESTIMATE DECREASED (ADEQ); POLYCHROMASIA 2+
[2017-02-28] MEDS ORDERED: BUPIVACAINE 0.5% 30 ML SDV ONE (06:44)
[2017-02-28] MEDS: PANTOPRAZOLE SODIUM 80 MG in NS 100 ML IV SCH ×3 (06:46→16:32)
--- NOTE | 2017-02-28 07:04 | POSTOPPROG ---
Post Op Note Date of Operation: 02/28/17 Surgeon: Jasen Vincent Parachute Crown Sewer: GUMARO Anesthesiologist: EZ Anesthesia: GET(General Endotracheal) Pre-op Diagnosis: UGI BLEED FROM GASTRIC GIST Post-op Diagnosis: SAME Indication: HYPOTENSION, ONGOING BLEEDING Procedure: PARTIAL GASTRECTOMY Findings: 5CM GIST TUMOR IN GASTRIC CARDIA Inf/Abcess present in the surg proc area at time of surgery?: No Depth: Organ Space EBL: Minimal Complications: 0 Specimen(s): PARTIAL GASTRECTOMY
[2017-02-28] MEDS ORDERED: NALOXONE HCL 0.4 MG/ML INJ IVP PRN (07:06)
[2017-02-28] MEDS ORDERED: D5W 1/2 NS W/ 20 KCl/L 1,000 ML IV SCH (07:15)
[2017-02-28] MEDS: HYDROmorphONE/DILAUDID 6 MG/30 ML PCA IV PRN (08:02)
--- NOTE | 2017-02-28 08:30 | SOAPPROG ---
SOAP Progress Note Assessment/Plan: Assessment/Plan: Submucosal mass, with rebleed; now, s/p gastrectomy. Dr. Vincent' excellent help appreciated. - mgmt as per surgery, hospitalist service. I will sign off. Please call if we can be of further help [phone]). Thanks! 02/28/17 08:27 Subjective: cc: UGI bleed Rebleeding in the middle of the night, with lethargy, pale, drop in blood pressure, complaints of weakness, light-headedness. Underwent emergent surgery this A.M. Objective: Vital Signs Temp Pulse Resp BP Pulse Ox 36.7 C 83 16 131/61 H 100 02/28/17 08:00 02/28/17 08:00 02/28/17 08:00 02/28/17 08:00 02/28/17 08:00 Laboratory Results 02/28/17 05:15 02/28/17 05:15 02/27/17 02/28/17 03/01/17 05:59 05:59 05:59 Intake Total 4585 Output Total 225 Balance 4360 PT 20.4 SEC (12.0-15.0) H 02/28/17 05:15 INR 1.74 (0.83-1.16) H 02/28/17 05:15 Physical Exam - Physical Exam General Appearance: WD/WN, alert, no apparent distress EENT: PERRL/EOMI, normal ENT inspection, pharynx normal, TMs normal Neck: non-tender, full range of motion, supple, normal inspection Respiratory: chest non-tender, lungs clear, normal breath sounds Cardiac/Chest: normal peripheral pulses, regular rate, rhythm Peripheral Pulses: 2+: carotid (R), carotid (L), femoral (R), femoral (L), dorsalis-pedis (R), dorsalis-pedis (L) Abdomen: No normal bowel sounds (surgical wound s/p surgery) Pelvic Exam: deferred Rectal: deferred Back: Normal inspection Skin: normal color, warm/dry Lymphatic: no adenopathy Extremities: normal range of motion, non-tender, normal inspection, normal capillary refill Neuro/Psych: no motor/sensory deficits, alert, normal mood/affect, oriented x 3 ICD10 Worksheet Patient Problems: Problems Problem Status Onset Anemia Acute GI bleed Acute Syncope Acute Arthritis of right hip Acute
[2017-02-28 08:48] LABS: ANION GAP 5 mEq/L (8-16); CALCIUM 6.2 mg/dL (8.5-10.4); CARBON DIOXIDE 17 mEq/l (22-31); CHLORIDE 119 mEq/L (97-110); CREATININE 0.8 mg/dL (0.6-1.0); GLOMERULAR FILTRATION RATE > 60; GLUCOSE 190 mg/dL (70-100); POTASSIUM 4.3 mEq/L (3.5-5.2); SODIUM 141 mEq/L (134-144)
[2017-02-28 08:50] LABS: INR 1.67 (0.83-1.16); PROTIME(PATIENT) 19.7 SEC (12.0-15.0)
[2017-02-28 08:59] LABS: APTT 29.2 SEC (23.0-38.0)
[2017-02-28 09:34] LABS: HEMOGLOBIN 8.8 g/dL (12.6-16.3)
--- NOTE | 2017-02-28 12:40 | GOP ---
[f rep st] OPERATIVE REPORT DATE OF OPERATION: 02/28/2017 SURGEON: Jasen Vincent MD SUPERVISOR [facility] HOUSE: Brett Haro MD. ANESTHESIOLOGIST: Dr. Peacock. PREOPERATIVE DIAGNOSIS: Upper gastrointestinal bleed secondary to a gastrointestinal stromal tumor. POSTOPERATIVE DIAGNOSIS: Upper gastrointestinal bleed secondary to a gastrointestinal stromal tumor . PROCEDURE PERFORMED: Laparotomy with partial gastrectomy, resecting a large gastrointestinal stroma l tumor. FINDINGS: Patient was found to have a stomach full of blood. She had a 6 cm GIST tumor on the grea ter curvature near the cardia. No other major intraabdominal abnormalities were identified. ESTIMATED BLOOD LOSS: Blood loss from the procedure was less than 20 cc. DESCRIPTION OF PROCEDURE: The patient was taken to the operating room, where she received satisfact ory general endotracheal anesthesia by Dr. Peacock. Placed in a supine position, prepped and draped i n the usual sterile fashion. A midline abdominal incision was made and carried through the linea al ba and the abdomen was entered. The GIST tumor was quite palpable at the cardia of the stomach, whi ch was up in a hiatal hernia section. The left lateral segment of the liver was mobilized by dividi ng the triangular ligament, and it was retracted out of the way with the Omni retractor. The upper abdomen was exposed. The greater curvature was mobilized and the short gastrics were divided with t he Harmonic Scalpel right up to the GE junction, which was easily mobilized. The tumor could be eas nicolas palpated and visualized. It was anchored in place with some stay sutures, and then the cardia o f the stomach was resected using firings of the JOSEPH stapler. The specimen was removed and sent to P athology. The staple lines were oversewn with a running 3-0 Prolene suture. The wound was irrigate d. Hemostasis was assured. The midline was closed with a running #1 PDS suture. Wound was infiltr ated with 0.5% Marcaine and the skin was closed with skin yovani. She tolerated the procedure well . COMPLICATIONS: There were no complications. Taken to the recovery room in good condition. /[id number]/MODL
--- NOTE | 2017-02-28 14:20 | GCON ---
[f rep st] CONSULTATION Corrected report PULMONARY/CRITICAL CONSULTATION DATE OF CONSULTATION: 02/27/2017 REFERRING PHYSICIAN: Niesha Fishman MD REASON FOR REFERRAL: Evaluation and management of GI bleed and tachycardia. HISTORY OF PRESENT ILLNESS: The patient is a 66-year-old woman with no active medical problems currently who has had melena and nausea for about a week. She then had some syncopal episodes. Because of these episodes and generalized dizziness and weakness, she presented to the Urgent Care where she was found to be anemic and transferred to the emergency department. She was seen by Dr. Johnson who performed an endoscopy who found a submucosal tumor in her stomach. Dr. Vincent was consulted and surgery was planned for the next day, but she had an episode of bloody diarrhea with hypotension. She was transfused and taken urgently to Surgery by Dr. Vincent, who performed a partial gastrectomy to resect the stromal gastric tumor. The patient has received 5 units of packed red blood cells. She currently has a sore throat, as well as some abdominal pain, but this is fairly well controlled. She denies any nausea. She is mostly resting because she is quite tired from being up most of the night. PAST MEDICAL HISTORY: None. PAST SURGICAL HISTORY: 1. Tonsillectomy. 2. Right hip replacement. MEDICATIONS: None prior to admission. ALLERGIES: None. SOCIAL HISTORY: The patient has never smoked and drinks alcohol infrequently. She lives alone. FAMILY HISTORY: Reviewed and noncontributory. REVIEW OF SYSTEMS: A 10-point review of systems was reviewed and adds nothing to the history of present illness. PHYSICAL EXAMINATION: GENERAL: The patient is sleeping but arousable and is oriented. VITAL SIGNS: Blood pressure is 124/65 with a pulse of 100. Her heart rate was as high as 114 overnight. Her systolic blood pressure is in the 90s overnight prior to surgery. Her oxygen saturations are 93% on room air. HEENT: Normocephalic and atraumatic. No icterus. NECK: No JVD. Trachea is midline. CHEST: Clear to auscultation. CARDIAC: Regular tachycardia with a 2 /6 systolic flow murmur. ABDOMEN: Soft, nontender. Bowel sounds are hypoactive. She is tender along her incision. EXTREMITIES: No clubbing, cyanosis, or edema. NEURO: Arousable and disoriented. No gross motor or sensory deficits. LABORATORY: Chemistry group shows a chloride level of 119 with a bicarbonate level of 17. Creatinine is 0.8 with a BUN of 42. Glucose is 190. Troponin is 1.44, down from 1.59 at the maximum. Albumin is 1.3. Her hemoglobin of 8.8 is up slightly from her hemoglobin 4 hours earlier. Her platelet count is 63 down from 197 at admission. A chest x-ray shows normal lung clancy and vascularity. Her central line is in good position. Images reviewed. ASSESSMENT: 1. Gastric tumor status post resection. The patient is recovering well postoperatively. 2. Anemia due to acute blood loss. This is most likely entirely due to the patient's GI bleed from her tumor. Her hemoglobin and hemodynamics have improved since transfusion and resection of the tumor. 3. Hyperglycemia. The patient's blood sugars have been in the 100s. She does not have a prior history of diabetes or hyperglycemia. This could be due to stress, as well as IV fluids with D5. RECOMMENDATIONS: 1. Follow serial hemoglobins. 2. Postoperative management as per Dr. Vincent. 3. Proton pump inhibitor for GI bleeding. 4. Change D5 to half-normal saline and continue to follow blood sugars. /[id number]/MODL Carol WT, 02/28/17, sinan RENDON
[2017-02-28] MEDS: 1/2 NS 1,000 ML IV SCH (14:57)
[2017-02-28 15:57] LABS: HEMATOCRIT 26.2 % (38.0-47.0); HEMOGLOBIN 9.2 g/dL (12.6-16.3); MEAN CELL HEMOGLOBIN 31.1 pg (27.9-34.1); MEAN CELL HEMOGLOBIN CONCENTR. 35.1 g/dL (32.4-36.7); MEAN CELL VOLUME 88.5 fL (81.5-99.8); RED BLOOD CELL COUNT 2.96 10^6/uL (4.18-5.33)
--- NOTE | 2017-02-28 19:19 | HOSPPROG ---
Hospitalist Progress Note Assessment/Plan: assessment: 66-year-old female presents with acute upper gastrointestinal hemorrhage resulting in acute blood loss anemia Plan: 1. Upper gastrointestinal hemorrhage. Acute, most likely secondary to GIST, requiring surgical resection, requiring 5 units of packed red blood cells 2. Acute blood loss anemia. Secondary to above, received 5 units of red blood cells, follow-up hemoglobin level stabilized, continue to monitor 3. GIST. New diagnosis, discussed with Dr. Lebron, he will see the patient in consultation and assisted in arranging follow-up as well as further treatment plan - postop day [address] Vincent this morning 4. Thrombocytopenia. Acute, most likely combination of consumptive as well as delusional - will follow DIC labs the - if patient begins to bleed, will consider platelet transfusion and immediate CBC 5. Leukocytosis. Acute worsening, most likely secondary to stress demargination in the setting of surgery, continue to monitor Patient was seen and evaluated with the medical team on interdisciplinary rounds as well as personally evaluated thereafter. Subjective: Patient reports that she is feeling well after surgery, has some abdominal pain Objective: Vital Signs Temp Pulse Resp BP Pulse Ox 37.8 C 103 H 14 107/76 97 02/28/17 16:00 02/28/17 16:00 02/28/17 16:00 02/28/17 16:00 02/28/17 16:00 Laboratory Results 02/28/17 15:47 02/28/17 08:20 02/27/17 02/28/17 03/01/17 05:59 05:59 05:59 Intake Total 4585 1204 Output Total 225 550 Balance 4360 654 PT 19.7 SEC (12.0-15.0) H 02/28/17 08:20 INR 1.67 (0.83-1.16) H 02/28/17 08:20 - Physical Exam Gastrointestinal: other ( central abdominal incision site without any significant bleeding, mild tenderness surrounding it) Genitourinary: other ( Avina catheter in place) Neurologic: AAOx3 ICD10 Worksheet Patient Problems: Problems Problem Status Onset Anemia Acute GI bleed Acute Syncope Acute Arthritis of right hip Acute
[2017-03-01] MEDS: 1/2 NS 1,000 ML IV SCH ×2 (01:31→11:31)
[2017-03-01] MEDS: HYDROmorphONE/DILAUDID 6 MG/30 ML PCA IV PRN ×2 (01:33→14:38)
[2017-03-01] MEDS: PANTOPRAZOLE SODIUM 80 MG in NS 100 ML IV SCH (02:23)
[2017-03-01 03:39] LABS: ABSOLUTE NRBC COUNT 1.04 10^3/uL (0-0.01); ADD DIFF? YES; ADD SCAN? NO; ATYPICAL LYMPHOCYTE FLAG 0 (0-99); FRAGMENT RBC FLAG 0 (0-99); HEMATOCRIT 23.4 % (38.0-47.0); LEFT SHIFT FLG 20 (0-99); LIPEMIA HEMOLYSIS FLAG 90 (0-99); MEAN CELL HEMOGLOBIN 31.1 pg (27.9-34.1); MEAN CELL HEMOGLOBIN CONCENTR. 34.2 g/dL (32.4-36.7); MEAN CELL VOLUME 91.1 fL (81.5-99.8); MEAN PLATELET VOLUME 11.5 fL (8.7-11.7); PLATELET CLUMPS FLAG 20 (0-99); PLATELET COUNT 83 10^3/uL (150-400); RED BLOOD CELL COUNT 2.57 10^6/uL (4.18-5.33); RED CELL DISTRIBUTION WIDTH 15.8 % (11.5-15.2)
[2017-03-01 03:43] LABS: ADD MORPH? NO; NRBC-AUTO% 4.1 % (0.0-0.2)
[2017-03-01 03:51] LABS: APTT 26.7 SEC (23.0-38.0); INR 1.29 (0.83-1.16)
[2017-03-01 03:52] LABS: FIBRINOGEN 287 mg/dL (214-456)
[2017-03-01 04:04] LABS: PLATELET COUNT 83 10^3/uL (150-400)
[2017-03-01 04:15] LABS: ANION GAP 4 mEq/L (8-16); CALCIUM 7.2 mg/dL (8.5-10.4); CARBON DIOXIDE 21 mEq/l (22-31); CHLORIDE 116 mEq/L (97-110); GLOMERULAR FILTRATION RATE 55; GLUCOSE 134 mg/dL (70-100); POTASSIUM 5.3 mEq/L (3.5-5.2); SODIUM 141 mEq/L (134-144)
[2017-03-01 04:24] LABS: PLATELET ESTIMATE DECREASED (ADEQ)
[2017-03-01 04:25] LABS: POLYCHROMASIA 2+
[2017-03-01 04:28] LABS: PROTIME(PATIENT) 16.1 SEC (12.0-15.0)
[2017-03-01 12:46] LABS: COLOR YELLOW; LEUKOCYTE ESTERASE,URINE 3+ (NEGATIVE); NITRITE,URINE NEGATIVE (NEGATIVE)
[2017-03-01 12:59] LABS: MUCUS TRACE /lpf (NONE-1+); RBC,URINE 25-50 /hpf (0-3); WBC,URINE 50-182 /hpf (0-3)
--- NOTE | 2017-03-01 13:19 | PDINTPN ---
Director Internal Communications Progress Note Assessment/Plan: Assessment: S/P resection of stomach GIST: Doing well post-op Anemia: From large GI bleed. Hgb down today. No signs of active bleeding. Stable mild tachycardia. Hyperkalemia: Developed today. Good urine output. Hyperglycemia: in 100s Plan: Follow BSs, Hgb. Ice chips PRN. 03/01/17 13:21 Subjective: Pain controlled, a bit stronger today. C/O sore throat Objective: Vital Signs Temp Pulse Resp BP Pulse Ox 36.8 C 106 H 15 109/52 L 94 03/01/17 11:54 03/01/17 11:54 03/01/17 11:54 03/01/17 11:54 03/01/17 11:54 Laboratory Results 03/01/17 03:25 03/01/17 03:25 02/28/17 03/01/17 03/02/17 05:59 05:59 05:59 Intake Total 4585 2565.5 Output Total 225 830 100 Balance 4360 1735.5 -100 PT 16.1 SEC (12.0-15.0) H 03/01/17 03:25 INR 1.29 (0.83-1.16) H 03/01/17 03:25 Physical Exam - Physical Exam General Appearance: alert, no apparent distress EENT: normal ENT inspection Neck: normal inspection Respiratory: lungs clear, normal breath sounds Cardiac/Chest: regular rate, rhythm, No edema Abdomen: non-tender, soft, No normal bowel sounds (absent) Skin: normal color, cyanosis Extremities: non-tender, normal inspection Neuro/Psych: alert, normal mood/affect, oriented x 3 ICD10 Worksheet Patient Problems: Problems Problem Status Onset Anemia Acute GI bleed Acute Syncope Acute Arthritis of right hip Acute
[2017-03-01 14:26] LABS: ABSOLUTE NRBC COUNT 1.21 10^3/uL (0-0.01); ADD DIFF? YES; ADD SCAN? NO; ATYPICAL LYMPHOCYTE FLAG 20 (0-99); FRAGMENT RBC FLAG 0 (0-99); HEMATOCRIT 20.8 % (38.0-47.0); HEMOGLOBIN 7.2 g/dL (12.6-16.3); LEFT SHIFT FLG 50 (0-99); LIPEMIA HEMOLYSIS FLAG 90 (0-99); MEAN CELL HEMOGLOBIN 31.9 pg (27.9-34.1); MEAN CELL HEMOGLOBIN CONCENTR. 34.6 g/dL (32.4-36.7); MEAN PLATELET VOLUME 11.6 fL (8.7-11.7); PLATELET CLUMPS FLAG 10 (0-99); PLATELET COUNT 89 10^3/uL (150-400); RED BLOOD CELL COUNT 2.26 10^6/uL (4.18-5.33); RED CELL DISTRIBUTION WIDTH 16.1 % (11.5-15.2)
[2017-03-01 14:29] LABS: ADD MORPH? NO; NRBC-AUTO% 4.8 % (0.0-0.2)
[2017-03-01 14:38] LABS: ANION GAP 6 mEq/L (8-16); CALCIUM 7.5 mg/dL (8.5-10.4); CARBON DIOXIDE 22 mEq/l (22-31); CHLORIDE 112 mEq/L (97-110); CREATININE 0.9 mg/dL (0.6-1.0); GLOMERULAR FILTRATION RATE > 60; GLUCOSE 127 mg/dL (70-100); POTASSIUM 4.7 mEq/L (3.5-5.2); SODIUM 140 mEq/L (134-144)
[2017-03-01 15:18] LABS: HYPOCHROMIA 2+; KERATOCYTES 1+; MACROCYTES 1+; PLATELET ESTIMATE DECREASED (ADEQ); POLYCHROMASIA 2+
[2017-03-01 15:20] LABS: HYPERSEGMENTED NEUTROPHILS 1+
--- NOTE | 2017-03-01 15:44 | ECHO ---
[id number] + + [address] : : [place] [address] : : [phone] + + Adult Echocardiographic Report + -------+ :Name: SUJATHA MILES BStudy Date: 03/01/2017 02:36 PM : : Hospital Admission Number: [id number] Locati on: 251: :: 1950 Gender: Female Height: 65 in : :Age: 66 yrs Race: WH Weight: 195 lb : :Reason For Study: Eval for forcal wall motion : : BSA: 2.0 meter s2 : :History: Post abdominal surgery, elevated troponins : + -------+ MMode/2D Measurements \T\ Calculations IVSd: 1.6 cm LVIDd: 4.3 cm FS: 47.5 % MV Diam: 3.1 cm LVPWd: 1.4 cm LVIDs: 2.3 cm EDV(Teich): 83.1 ml ESV(Teich): 17.3 ml EF(Teich): 79.1 % Ao root diam: 2.4 cm ACS: 1.1 cm Normal Measurement Values: + + :LVIDd (3.5-5.7cm) IVSd (0.6-1.1cm) LVPWd (0.6-1.1cm) Aortic Root (2.0-3.7cm)Left Atrium (1.5-4.0cm): :LV Vol(d) (76-115ml) LV Vol(s) (29-48ml) Ejec Fraction (50-65%)PV Carlos (0.6- 1.2m/s) TV Carlos (0.4-1.0m/s) : :MV E Carlos (0.8-1.0m/s)MV A Carlos (0.3-1.0m/s)LVOT Carlos (0.7-1.2m/s) Asc Ao Carlos ( 0.9-1.8m/s) : + + Doppler Measurements \T\ Calculations MV E max carlos: MV V2 mean: Ao V2 max: MR max carlos: 129.6 cm/sec 115.8 cm/sec 582.0 cm/sec 781.8 cm/sec MV A max carlos: MV mean P.9 mmHg Ao max PG: MR max P.5 cm/sec MV V2 VTI: 34.7 cm 135.5 mmHg 244.5 mmHg MV E/A: 0.92 MV area (1 diam): 7.7 cm2 MV Flow area(1diam): 7.7 cm2 MR(RF 1 diam): SV(MV 1 diam): PA V2 max: 19.7 % 265.3 ml 124.9 cm/sec SI(MV 1 diam): PA max P.5 ml/m2 6.2 mmHg Left Ventricle The left ventricle is normal in size. There is mild to moderate concentric left ventricular hypertrophy. A mid-cavitary gradient is present. The left ventricle is hyperdynamic. Ejection Fraction = 80%. No regional wall motion abnormalities noted. Right Ventricle The right ventricle is normal in size and function. Atria The left atrial size is normal. Right atrial size is normal. Mitral Valve There is posterior mitral anular calcification. There is systolic anterior motion of the mitral valve leaflets resulting in moderate mitral regurgitation. There is no mitral valve stenosis. There is moderate mitral regurgitation. Tricuspid Valve The tricuspid valve is normal in structure and function. No tricuspid regurgitation. Aortic Valve The aortic valve is not well visualized. There is no aortic stenosis. There is no aortic insufficiency. Pulmonic Valve The pulmonic valve is not well visualized. Great Vessels The aortic root is normal size. Pericardium/Pleural There is no pericardial effusion. Conclusion A complete two-dimensional transthoracic echocardiogram was performed (2D, M-mode, Doppler and color flow Doppler). 1. The left ventricle is normal in size. There is mild to moderate concentric left ventricular hypertrophy. The LVEF is 80%. A mid-cavitary gradient is present. 2. There is posterior mitral anular calcification. There is systolic anterior motion of the mitral valve leaflets resulting in moderate mitral regurgitation. 3. The aortic valve is not well visualized. There is no aortic stenosis. There is no aortic insufficiency. 4. No old studies for comparison. Final Reading Physician: Derek Garcia MD electronically signed on 03/01/2017 03:42 PM Ordering Physician: Derek Valles Performed By: Abdelrahman Rojas, SHAWNCS
[2017-03-01] MEDS ORDERED: NS BOLUS 500 ML (Wide open) IV ONE (16:00)
[2017-03-01] MEDS ORDERED: METOPROLOL TARTRATE 25 MG TAB ONE (16:04)
[2017-03-01] MEDS: METOPROLOL TARTRATE 25 MG TAB PO SCH ×2 (16:30→19:49)
--- NOTE | 2017-03-01 17:16 | SOAPPROG ---
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 VS STABLE/ HCT 16 BUT BEING TRANSFUSED ALERT COOPERATIVE/ RISKS AND OPTIONS FULLY DISCUSSED/ WILL NEED PARTIAL GASTRECTOMY IN AM NONICTERIC/ CHEST CLEAR/ COR RR/ ABD SOFT Plan:SURGERY IN AM / TRANSFUSE TONITE 02/27/17 19:15 02/28/17 05:29 PT REBLED THIS AM/ HYPOTENSIVE/ LETHARGIC/ DECREASED UO PALE/ DRY MUCUS MEMBRANES/ NONICTERIC CHEST CLEAR/ COR RR ABD SOFT, NONTENDER/ EXTREMWEAK PULSES SKIN DRY/ NEURO LETHARGIC BUT SYMMETRIC WILL GO TO OR STAT / VOLUME RESUSCITATION NOW LEFT SUBCLAVIAN TRIPLE LUMEN PLACED RISKS AND OPTIONS FULLY DISCUSSED INCLUDING AND SHE AGREES WITH SURGERY 45 MIN CRITICAL CARE DONE 03/01/17 17:13 Vital signs stable/ patient alert and cooperative/ wound okay / urine output good / afebrile / hematocrit down to 21 / consider transfusion Objective: Vital Signs Temp Pulse Resp BP Pulse Ox 36.8 C 106 H 15 109/52 L 94 03/01/17 11:54 03/01/17 11:54 03/01/17 11:54 03/01/17 11:54 03/01/17 11:54 Laboratory Results 03/01/17 14:10 03/01/17 14:10 02/28/17 03/01/17 03/02/17 05:59 05:59 05:59 Intake Total 4585 2565.5 Output Total 225 830 200 Balance 4360 1735.5 -200 PT 16.1 SEC (12.0-15.0) H 03/01/17 03:25 INR 1.29 (0.83-1.16) H 03/01/17 03:25 ICD10 Worksheet Patient Problems: Problems Problem Status Onset Anemia Acute GI bleed Acute Syncope Acute Arthritis of right hip Acute
--- NOTE | 2017-03-01 17:28 | PDINTPN ---
Prison Classification Counselor Progress Note Assessment/Plan: Assessment: S/P resection of stomach GIST: Doing well post-op Anemia: From large GI bleed. Hgb down today. No signs of active bleeding. Stable mild tachycardia. Hyperkalemia: Developed today. Good urine output. Hyperglycemia: in 100s Plan: Follow BSs, Hgb. Ice chips PRN. 03/01/17 13:21 Objective: Vital Signs Temp Pulse Resp BP Pulse Ox 36.8 C 106 H 15 109/52 L 94 03/01/17 11:54 03/01/17 11:54 03/01/17 11:54 03/01/17 11:54 03/01/17 11:54 Laboratory Results 03/01/17 14:10 03/01/17 14:10 02/28/17 03/01/17 03/02/17 05:59 05:59 05:59 Intake Total 4585 2565.5 Output Total 225 830 200 Balance 4360 1735.5 -200 PT 16.1 SEC (12.0-15.0) H 03/01/17 03:25 INR 1.29 (0.83-1.16) H 03/01/17 03:25 ECHO: LVEF 80%, mid cavity gradient. SERAFIN/moderate MR ICD10 Worksheet Patient Problems: Problems Problem Status Onset Anemia Acute GI bleed Acute Syncope Acute Arthritis of right hip Acute
[2017-03-01] MEDS: PANTOPRAZOLE SODIUM 40 MG in NS 100 ML IV SCH (21:39)
--- NOTE | 2017-03-01 21:40 | GPROG ---
[f rep st] PROGRESS NOTE SUBJECTIVE: The patient reports that she is thirsty and would like to drink fluids if possible. OBJECTIVE: VITAL SIGNS: Systolic blood pressure is 110-120, heart rate 110, T-max 38.1, net positi ve 2 L overnight. GENERAL: Alert, awake, oriented x3. No apparent distress. Pain level 0/10. So mewhat chronically ill-appearing and obese. CARDIAC: A 3/6 systolic murmur at the apex with regula r rhythm, tachycardic. No lower extremity edema. RESPIRATORY: Clear to auscultation bilaterally. No crackles. No wheezes. No bronchial breath sounds. No areas of reduced air movement. GASTROIN TESTINAL: Abdominal incision site centrally. Abdomen is soft, mildly tender to moderate palpation, nasogastric tube in place, bowel sounds are hypoactive. PSYCH: Not anxious, not encephalopathic, thought process is linear. She is cooperative and following commands. DATA: Creatinine 1, serum bicarb 21, calcium 9.2. INR 1.3. White blood cell count 25,300, hemoglob in 8, platelets 80,000. ASSESSMENT: A 66-year-old female, presents with acute blood loss anemia and acute upper gastrointes tinal hemorrhage in the setting of newly diagnosed gastrointestinal stromal tumor, complicated by sy stemic inflammatory response syndrome. PLAN: 1. Systemic inflammatory response syndrome. Acute, new problem to this provider, further workup in dicated. a. Chest x-ray from 02/28, not demonstrating any focal infiltrate, personally interpreted. 2. Tachycardia, fever, leukocytosis, unclear whether she has underlying infection. a. Send urinalysis, and if positive, send urine culture. b. Send blood cultures. c. Get echocardiogram. d. Discussed patient's echocardiogram with Dr. Garcia, and he has reported to me that the patient a ppears to have left ventricular outflow tract obstruction. He would recommend providing additional volume, as well as beta-andressa therapy. e. Give 500 cc normal saline bolus and increase her half-normal saline rate thereafter. f. Hold on antibiotics at this time. g. Continue monitor CBC. 3. Non ST-elevation myocardial infarction, type 2, secondary to demand in the setting of acute [place] rointestinal bleed, echocardiogram without any focal wall motion abnormalities. I instructed the keven mabel that she should have an outpatient stress test performed once this acute episode has resolved. Her last stress test was approximately 17 years ago. 4. Acute blood loss anemia secondary to acute gastrointestinal bleed. She has received 5 units of packed red blood cells. Her hemoglobin remains stable around 8. 5. Acute upper gastrointestinal hemorrhage secondary to gastrointestinal stromal tumor, status post surgical resection. Blood counts remain stable. 6. Gastrointestinal stromal tumor, status post surgical resection by Dr. Vincent. Pathology is curre ntly pending. I have discussed this with Dr. Lebron, and he will consult with the patient once the p athology results are available and arrange followup. a. Counseled the patient regarding this diagnosis and her outpatient followup options. 7. Metabolic acidosis. Acute, secondary to lactic acid in the setting of above, continue to monito r. 8. Diet. N.p.o. with ice chips, per Dr. Vincent, continue nasogastric tube to suction. 9. Prophylaxis. High risk patient, recently had bleeding event, pharmacy contraindicated and place d on sequential compression devices. 10. Code. DISPOSITION: Anticipated discharge uncertain at this time. Patient remains high medical complexity with high risk of ongoing morbidity and/or mortality. /[id number]/MODL
[2017-03-02 05:01] LABS: ANION GAP 3 mEq/L (8-16); CALCIUM 7.2 mg/dL (8.5-10.4); CARBON DIOXIDE 21 mEq/l (22-31); CHLORIDE 114 mEq/L (97-110); CREATININE 0.7 mg/dL (0.6-1.0); GLOMERULAR FILTRATION RATE > 60; GLUCOSE 96 mg/dL (70-100); POTASSIUM 4.5 mEq/L (3.5-5.2); SODIUM 138 mEq/L (134-144)
[2017-03-02 05:21] LABS: ABSOLUTE NRBC COUNT 0.86 10^3/uL (0-0.01); ADD DIFF? YES; ADD SCAN? NO; ATYPICAL LYMPHOCYTE FLAG 20 (0-99); FRAGMENT RBC FLAG 0 (0-99); HEMATOCRIT 20.7 % (38.0-47.0); LEFT SHIFT FLG 50 (0-99); LIPEMIA HEMOLYSIS FLAG 80 (0-99); MEAN CELL HEMOGLOBIN 30.1 pg (27.9-34.1); MEAN CELL HEMOGLOBIN CONCENTR. 33.3 g/dL (32.4-36.7); MEAN CELL VOLUME 90.4 fL (81.5-99.8); MEAN PLATELET VOLUME 11.2 fL (8.7-11.7); PLATELET CLUMPS FLAG 0 (0-99); PLATELET COUNT 78 10^3/uL (150-400); RED BLOOD CELL COUNT 2.29 10^6/uL (4.18-5.33); RED CELL DISTRIBUTION WIDTH 18.5 % (11.5-15.2)
[2017-03-02 05:23] LABS: ADD MORPH? NO; HEMOGLOBIN 6.9 g/dL (12.6-16.3); NRBC-AUTO% 4.6 % (0.0-0.2)
[2017-03-02 06:05] LABS: PLATELET ESTIMATE DECREASED (ADEQ); POLYCHROMASIA 1+
[2017-03-02 06:07] LABS: MACROCYTES 1+
[2017-03-02] MEDS: HYDROmorphONE/DILAUDID 6 MG/30 ML PCA IV PRN (08:37)
[2017-03-02] MEDS: PANTOPRAZOLE SODIUM 40 MG in NS 100 ML IV SCH ×2 (09:01→21:37)
--- NOTE | 2017-03-02 09:44 | SOAPPROG ---
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 VS STABLE/ HCT 16 BUT BEING TRANSFUSED ALERT COOPERATIVE/ RISKS AND OPTIONS FULLY DISCUSSED/ WILL NEED PARTIAL GASTRECTOMY IN AM NONICTERIC/ CHEST CLEAR/ COR RR/ ABD SOFT Plan:SURGERY IN AM / TRANSFUSE TONITE 02/27/17 19:15 02/28/17 05:29 PT REBLED THIS AM/ HYPOTENSIVE/ LETHARGIC/ DECREASED UO PALE/ DRY MUCUS MEMBRANES/ NONICTERIC CHEST CLEAR/ COR RR ABD SOFT, NONTENDER/ EXTREMWEAK PULSES SKIN DRY/ NEURO LETHARGIC BUT SYMMETRIC WILL GO TO OR STAT / VOLUME RESUSCITATION NOW LEFT SUBCLAVIAN TRIPLE LUMEN PLACED RISKS AND OPTIONS FULLY DISCUSSED INCLUDING AND SHE AGREES WITH SURGERY 45 MIN CRITICAL CARE DONE 03/01/17 17:13 Vital signs stable/ patient alert and cooperative/ wound okay / urine output good / afebrile / hematocrit down to 21 / consider transfusion 03/02/17 09:43 alert comfortable/ wound okay/ hematocrit still low at 21 / no evidence of ongoing bleeding / NG drainage is clear / no bloody bowel movements / Abdomen is soft nontender with bowel sounds / positive flatus / plan is to clamp the NG and start on clear Objective: Vital Signs Temp Pulse Resp BP Pulse Ox 37.1 C 82 12 103/51 L 98 03/02/17 07:53 03/02/17 07:53 03/02/17 07:53 03/02/17 07:53 03/02/17 08:25 Laboratory Results 03/02/17 04:15 03/02/17 04:15 03/01/17 03/02/17 03/03/17 05:59 05:59 05:59 Intake Total 2565.5 3231.8 Output Total 830 1100 Balance 1735.5 2131.8 PT 16.1 SEC (12.0-15.0) H 03/01/17 03:25 INR 1.29 (0.83-1.16) H 03/01/17 03:25 ICD10 Worksheet Patient Problems: Problems Problem Status Onset Anemia Acute GI bleed Acute Syncope Acute Arthritis of right hip Acute
[2017-03-02] MEDS ORDERED: LIDOCAINE 2% VISCOUS 15 ML UDCUP PO PRN (10:35)
[2017-03-02] MEDS ORDERED: BENZOCAINE UNIT DOSE SPRAY HURRICAINE MM PRN (10:35)
[2017-03-02] MEDS: METOPROLOL TARTRATE 25 MG TAB PO SCH ×2 (10:50→21:43)
--- NOTE | 2017-03-02 13:52 | PDINTPN ---
Bellstand Attendant Progress Note Assessment/Plan: Assessment: S/P resection of stomach GIST: Doing well post-op. Still not taking PO, no BM. Anemia: From large GI bleed. Hgb down today. No signs of active bleeding. Stable mild tachycardia. Hyperkalemia: Improved today. Good urine output. Hyperglycemia: in 100s THrombocytopenia: A bit lower today. Plan: Transfuse PRBCs for anemia and also to address intraventricular gradient. Follow BSs, Hgb, Plt. Ice chips PRN. 03/02/17 14:23 Subjective: Feels Better, strength improved. No BM. Throat still sore. Objective: Vital Signs Temp Pulse Resp BP Pulse Ox 36.8 C 86 18 100/70 100 03/02/17 11:49 03/02/17 11:49 03/02/17 11:49 03/02/17 11:49 03/02/17 11:49 Laboratory Results 03/02/17 04:15 03/02/17 04:15 03/01/17 03/02/17 03/03/17 05:59 05:59 05:59 Intake Total 2565.5 3231.8 Output Total 830 1100 Balance 1735.5 2131.8 PT 16.1 SEC (12.0-15.0) H 03/01/17 03:25 INR 1.29 (0.83-1.16) H 03/01/17 03:25 Physical Exam - Physical Exam General Appearance: alert, no apparent distress EENT: normal ENT inspection Neck: normal inspection Respiratory: lungs clear, normal breath sounds Cardiac/Chest: regular rate, rhythm, systolic murmur Abdomen: non-tender, soft, No normal bowel sounds (diminished) Skin: normal color, warm/dry Extremities: normal inspection Neuro/Psych: alert, normal mood/affect, oriented x 3 ICD10 Worksheet Patient Problems: Problems Problem Status Onset Anemia Acute GI bleed Acute Syncope Acute Arthritis of right hip Acute
[2017-03-02 17:39] LABS: ABSOLUTE NRBC COUNT 0.65 10^3/uL (0-0.01); ADD DIFF? YES; ADD MORPH? YES; ADD SCAN? NO; ATYPICAL LYMPHOCYTE FLAG 20 (0-99); FRAGMENT RBC FLAG 10 (0-99); HEMATOCRIT 29.8 % (38.0-47.0); HEMOGLOBIN 10.1 g/dL (12.6-16.3); LEFT SHIFT FLG 50 (0-99); LIPEMIA HEMOLYSIS FLAG 90 (0-99); MEAN CELL HEMOGLOBIN 29.9 pg (27.9-34.1); MEAN CELL HEMOGLOBIN CONCENTR. 33.9 g/dL (32.4-36.7); MEAN CELL VOLUME 88.2 fL (81.5-99.8); MEAN PLATELET VOLUME 10.5 fL (8.7-11.7); PLATELET CLUMPS FLAG 10 (0-99); PLATELET COUNT 84 10^3/uL (150-400); RED BLOOD CELL COUNT 3.38 10^6/uL (4.18-5.33); RED CELL DISTRIBUTION WIDTH 17.6 % (11.5-15.2)
[2017-03-02 17:40] LABS: NRBC-AUTO% 4.4 % (0.0-0.2)
[2017-03-02 20:19] LABS: LARGE PLATELETS PRESENT; MICROCYTES 1+; PLATELET ESTIMATE DECREASED (ADEQ); POLYCHROMASIA 2+
[2017-03-02] MEDS: 1/2 NS 1,000 ML IV SCH (21:37)
--- NOTE | 2017-03-02 22:35 | HOSPPROG ---
Hospitalist Progress Note Assessment/Plan: assessment: 66-year-old female presents with acute upper gastrointestinal hemorrhage resulting in acute blood loss anemia Plan: 1. Upper gastrointestinal hemorrhage. Acute, secondary to GIST, requiring surgical resection, requiring 7 units of packed red blood cells 2. Acute blood loss anemia. Secondary to above, received 7 units of red blood cells, follow-up hemoglobin level stabilized, continue to monitor - declining this AM, transfused today 3. GIST. New diagnosis, discussed with Dr. Lebron, he will see the patient in consultation and assisted in arranging follow-up as well as further treatment plan - postop day [address] Vincent - clamping NGT and PO ice chips 4. Thrombocytopenia. Acute, most likely combination of consumptive as well as delutional - if patient begins to bleed, will consider platelet transfusion and immediate CBC 5. Leukocytosis. 2/2 stress demarg from surgery 6. Hypotension. 2/2 poor oncotic pressure (alb 1.3) and possibly ongoing blood loss - give 2 units PRBC now and monitor closely 7. Asymptomatic bacturia. No overt UTI 8. Suspected atelectasis. Likely source of fever, cont IS/o2 Diet. chips PPx. High risk, SCDs Code. Full Dispo. ADD uncertain High level of medical complexity, high risk of worsening morbidity and mortality Subjective: no BMs, no shortness of breath Objective: Vital Signs Temp Pulse Resp BP Pulse Ox 37.1 C 77 15 113/55 L 98 03/02/17 19:36 03/02/17 21:43 03/02/17 19:36 03/02/17 21:43 03/02/17 19:36 Laboratory Results 03/02/17 17:20 03/02/17 04:15 03/01/17 03/02/17 03/03/17 05:59 05:59 05:59 Intake Total 2565.5 3231.8 1936 Output Total 830 1100 700 Balance 1735.5 2131.8 1236 PT 16.1 SEC (12.0-15.0) H 03/01/17 03:25 INR 1.29 (0.83-1.16) H 03/01/17 03:25 - Physical Exam Constitutional: no apparent distress, appears nourished, not in pain Cardiovascular: systolic murmur (II/ at all valves), No irregularly irregular , No tachycardia, No edema Respiratory: inspiratory crackles (bilat bases), No reduced air movement, No expiratory wheeze, No bronchial breath sounds Gastrointestinal: tenderness (mild around surg site), No normoactive bowel sounds (hypoactive bowel sounds), No guarding, No distension Neurologic: AAOx3, No weakness Psychiatric: interacting appropriately, not anxious, not encephalopathic, thought process linear ICD10 Worksheet Patient Problems: Problems Problem Status Onset Arthritis of right hip Acute GI bleed Acute Syncope Acute Anemia Acute
[2017-03-03] MEDS ORDERED: ALBUTEROL 3 ML DEYVIAL ONE (02:21)
[2017-03-03] MEDS ORDERED: FUROSEMIDE 40 MG/4 ML VIAL IVP ONE (02:33)
[2017-03-03] MEDS ORDERED: ALBUTEROL 3 ML DEYVIAL IH PRN (02:35)
[2017-03-03 03:59] LABS: ABSOLUTE NRBC COUNT 0.46 10^3/uL (0-0.01); ADD DIFF? YES; ADD MORPH? YES; ADD SCAN? NO; ATYPICAL LYMPHOCYTE FLAG 10 (0-99); FRAGMENT RBC FLAG 0 (0-99); HEMATOCRIT 33.1 % (38.0-47.0); HEMOGLOBIN 11.3 g/dL (12.6-16.3); LEFT SHIFT FLG 40 (0-99); LIPEMIA HEMOLYSIS FLAG 90 (0-99); MEAN CELL HEMOGLOBIN CONCENTR. 34.1 g/dL (32.4-36.7); MEAN CELL VOLUME 87.8 fL (81.5-99.8); MEAN PLATELET VOLUME 9.9 fL (8.7-11.7); PLATELET CLUMPS FLAG 0 (0-99); PLATELET COUNT 86 10^3/uL (150-400); RED BLOOD CELL COUNT 3.77 10^6/uL (4.18-5.33); RED CELL DISTRIBUTION WIDTH 18.6 % (11.5-15.2)
[2017-03-03 04:03] LABS: NRBC-AUTO% 2.9 % (0.0-0.2)
[2017-03-03 04:31] LABS: ANION GAP 7 mEq/L (8-16); CALCIUM 7.7 mg/dL (8.5-10.4); CARBON DIOXIDE 25 mEq/l (22-31); CHLORIDE 107 mEq/L (97-110); CREATININE 0.7 mg/dL (0.6-1.0); GLOMERULAR FILTRATION RATE > 60; GLUCOSE 84 mg/dL (70-100); POTASSIUM 3.3 mEq/L (3.5-5.2); SODIUM 139 mEq/L (134-144)
[2017-03-03 04:46] LABS: PLATELET ESTIMATE DECREASED (ADEQ); POLYCHROMASIA 2+
[2017-03-03] MEDS ORDERED: PROTOCOL MAGNESIUM 1 DOSE IV PRN (04:50)
[2017-03-03] MEDS ORDERED: PROTOCOL POTASSIUM 1 DOSE MISC PRN (04:50)
[2017-03-03 05:15] LABS: MAGNESIUM 2.1 mg/dL (1.6-2.3)
[2017-03-03] MEDS: POTASSIUM Cl (KCl) 50 ML IV SCH ×3 (05:22→08:50)
[2017-03-03] MEDS: PANTOPRAZOLE SODIUM 40 MG in NS 100 ML IV SCH (10:05)
[2017-03-03] MEDS: METOPROLOL TARTRATE 25 MG TAB PO SCH ×2 (10:05→21:10)
[2017-03-03 12:45] LABS: HEMATOCRIT 30.3 % (38.0-47.0); HEMOGLOBIN 10.3 g/dL (12.6-16.3)
--- NOTE | 2017-03-03 14:12 | HOSPPROG ---
Hospitalist Progress Note Assessment/Plan: INTERVAL SUMMARY & DAILY PROGRESS NOTE DATE OF ADMISSION:02/27/2017 INTERVAL DIAGNOSES 1. New diagnosis of GI ST tumor 2. Acute upper gastrointestinal hemorrhage 3. Acute blood loss anemia 4. Acute thrombocytopenia 5. Acute hypotension 6. Atelectasis 7. Acute diastolic congestive heart failure exacerbation CONSULTATIONS General surgery by Dr. Vincent, pulmonary Critical Care, Gastroenterology, Hematology Oncology pending path results PROCEDURES / IMAGING 02/27 upper endoscopy demonstrating bleeding mass, 02/[address] Vincent CHIEF COMPLAINT Bloody bowel movements SUBJECTIVE Patient has had to bloody bowel movements, she reports that her strength is improving HOSPITAL COURSE Patient presented with upper gastrointestinal hemorrhage secondary to a bleeding GIST, diagnosed on upper endoscopy and receiving therapeutic partial gastrectomy by Dr. Vincent. She has had some ongoing bleeding and has been transfused at least 7 units. She continues to experience some dark and bloody bowel movements which may be passage of either old blood or slow oozing at the site. Her hemoglobin level is currently stable. She has had escalating oxygen requirements secondary to volume overload and suspected diastolic dysfunction with significant left ventricular outflow tract obstruction on cardiac echo. We have initiated IV Lasix and she has been symptomatically improving, her oxygen requirements have been declining. A: 66-year-old female presents with acute upper gastrointestinal hemorrhage resulting in acute blood loss anemia Plan: 1. Upper gastrointestinal hemorrhage. Acute, secondary to GIST, requiring surgical resection, requiring 7 units of packed red blood cells 2. Acute blood loss anemia. Secondary to above, received 7 units of red blood cells, follow-up hemoglobin level stabilized, continue to monitor - monitoring daily 3. GIST. New diagnosis, discussed with Dr. Lebron, he will see the patient in consultation and assisted in arranging follow-up as well as further treatment plan - postop day [address] Vincent - adv diet per Dr. Vincent 4. Thrombocytopenia. Acute, most likely combination of consumptive as well as dilutional 5. Leukocytosis. 2/2 stress demarg from surgery 6. Hypotension. 2/2 poor oncotic pressure (alb 1.3) and possibly ongoing blood loss - s/p blood and fluids 7. Asymptomatic bacturia. No overt UTI 8. Atelectasis. Likely source of fever, cont IS/o2 9. Acute diastolic CHF exacerbation. Evidenced by interstitial edema on CXR, edema, resp distress while supine - 2/2 volume w/ resuscitation + LVOT obstruction from dd on Echo - stopped IVF - improving w/ lasix, redose 40mg IV today and daily - K supplementation - OK to continue mackey while aggressively diuresing, but rec DC tomorrow Diet. chips PPx. High risk, SCDs Code. Full Dispo. ADD uncertain Subjective: Patient reports she had difficulty breathing when she was lying supine last night, improved after Mackey catheter placement and IV Lasix, counseled patient regarding anticipated recovery time and duration of longterm facility care anticipated after this hospitalization Objective: Vital Signs Temp Pulse Resp BP Pulse Ox 37.1 C 85 16 117/54 L 91 L 03/03/17 08:00 03/03/17 12:00 03/03/17 12:00 03/03/17 12:00 03/03/17 12:00 Laboratory Results 03/03/17 12:30 03/03/17 03:53 03/02/17 03/03/17 03/04/17 05:59 05:59 05:59 Intake Total 3231.8 3292 Output Total 1100 3650 Balance 2131.8 -358 PT 16.1 SEC (12.0-15.0) H 03/01/17 03:25 INR 1.29 (0.83-1.16) H 03/01/17 03:25 - Time Spent With Patient Time Spent with Patient: greater than 35 minutes Time Spent with Patient: Greater than 35 minutes spent on this patients care, greater than 50% of time spent counseling, educating, and coordinating care regarding the above mentioned plan. - Physical Exam Constitutional: no apparent distress, not in pain, No uncomfortable Cardiovascular: systolic murmur ( 2/6 at valve location), edema ( 1+ bilateral lower extremities), No irregularly irregular, No tachycardia Respiratory: reduced air movement ( right base), No expiratory wheeze, No bronchial breath sounds, No respiratory distress Gastrointestinal: normoactive bowel sounds, tenderness ( mild surgical site), No guarding, No distension Neurologic: AAOx3 ICD10 Worksheet Patient Problems: Problems Problem Status Onset Anemia Acute GI bleed Acute Syncope Acute Arthritis of right hip Acute
[2017-03-03] MEDS: FUROSEMIDE 40 MG/4 ML VIAL IVP SCH (14:29)
[2017-03-03 18:35] LABS: POTASSIUM 3.2 mEq/L (3.5-5.2)
--- NOTE | 2017-03-03 19:43 | SOAPPROG ---
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 VS STABLE/ HCT 16 BUT BEING TRANSFUSED ALERT COOPERATIVE/ RISKS AND OPTIONS FULLY DISCUSSED/ WILL NEED PARTIAL GASTRECTOMY IN AM NONICTERIC/ CHEST CLEAR/ COR RR/ ABD SOFT Plan:SURGERY IN AM / TRANSFUSE TONITE 02/27/17 19:15 02/28/17 05:29 PT REBLED THIS AM/ HYPOTENSIVE/ LETHARGIC/ DECREASED UO PALE/ DRY MUCUS MEMBRANES/ NONICTERIC CHEST CLEAR/ COR RR ABD SOFT, NONTENDER/ EXTREMWEAK PULSES SKIN DRY/ NEURO LETHARGIC BUT SYMMETRIC WILL GO TO OR STAT / VOLUME RESUSCITATION NOW LEFT SUBCLAVIAN TRIPLE LUMEN PLACED RISKS AND OPTIONS FULLY DISCUSSED INCLUDING AND SHE AGREES WITH SURGERY 45 MIN CRITICAL CARE DONE 03/01/17 17:13 Vital signs stable/ patient alert and cooperative/ wound okay / urine output good / afebrile / hematocrit down to 21 / consider transfusion 03/02/17 09:43 alert comfortable/ wound okay/ hematocrit still low at 21 / no evidence of ongoing bleeding / NG drainage is clear / no bloody bowel movements / Abdomen is soft nontender with bowel sounds / positive flatus / plan is to clamp the NG and start on clear 03/03/17 19:41 DOING WELL/ STILL SOME BLOODY BMS/ VITAL SIGNS STABLE / HEMATOCRIT 33 / ABDOMEN SOFT AND WOUND OKAY / POSITIVE FLATUS AND BMS / TOLERATING P.O. Objective: Vital Signs Temp Pulse Resp BP Pulse Ox 37.1 C 83 14 110/54 L 96 03/03/17 08:00 03/03/17 16:00 03/03/17 16:00 03/03/17 16:00 03/03/17 16:00 Microbiology 03/01/17 21:00 Urine Culture - Final Urine,Clean Catch Enterococcus Species Two [place] Types Laboratory Results 03/03/17 12:30 03/03/17 18:00 03/02/17 03/03/17 03/04/17 05:59 05:59 05:59 Intake Total 3231.8 3292 421 Output Total 1100 3650 2800 Balance 2131.8 -358 -2379 PT 16.1 SEC (12.0-15.0) H 03/01/17 03:25 INR 1.29 (0.83-1.16) H 03/01/17 03:25 ICD10 Worksheet Patient Problems: Problems Problem Status Onset Anemia Acute GI bleed Acute Syncope Acute Arthritis of right hip Acute
[2017-03-03] MEDS ORDERED: POTASSIUM CL 20 MEQ TAB PO ONE (20:41)
[2017-03-03] MEDS: PANTOPRAZOLE SODIUM 40 MG TAB PO SCH (20:46)
[2017-03-04 05:52] LABS: ANION GAP 5 mEq/L (8-16); CALCIUM 7.4 mg/dL (8.5-10.4); CARBON DIOXIDE 27 mEq/l (22-31); CHLORIDE 106 mEq/L (97-110); CREATININE 0.6 mg/dL (0.6-1.0); GLOMERULAR FILTRATION RATE > 60; GLUCOSE 85 mg/dL (70-100); MAGNESIUM 2.1 mg/dL (1.6-2.3); POTASSIUM 3.4 mEq/L (3.5-5.2); SODIUM 138 mEq/L (134-144)
[2017-03-04 05:58] LABS: ABSOLUTE NRBC COUNT 0.06 10^3/uL (0-0.01); ADD DIFF? YES; ADD MORPH? NO; ADD SCAN? NO; ATYPICAL LYMPHOCYTE FLAG 0 (0-99); FRAGMENT RBC FLAG 0 (0-99); HEMATOCRIT 27.8 % (38.0-47.0); HEMOGLOBIN 9.3 g/dL (12.6-16.3); LEFT SHIFT FLG 40 (0-99); LIPEMIA HEMOLYSIS FLAG 80 (0-99); MEAN CELL HEMOGLOBIN CONCENTR. 33.5 g/dL (32.4-36.7); MEAN CELL VOLUME 89.7 fL (81.5-99.8); MEAN PLATELET VOLUME 10.7 fL (8.7-11.7); NRBC-AUTO% 0.7 % (0.0-0.2); PLATELET CLUMPS FLAG 0 (0-99); PLATELET COUNT 98 10^3/uL (150-400); RED CELL DISTRIBUTION WIDTH 18.3 % (11.5-15.2)
[2017-03-04 06:44] LABS: PLATELET ESTIMATE DECREASED (ADEQ)
[2017-03-04 06:45] LABS: MACROCYTES 1+; POLYCHROMASIA 1+
--- NOTE | 2017-03-04 07:43 | SOAPPROG ---
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 of the day S: Sitting up in chair O: BS present, soft, appropriately tender, incision cdi Plan: 03/04/17 07:43 03/04/17 13:16 Objective: Vital Signs Temp Pulse Resp BP Pulse Ox 37.1 C 72 15 101/57 L 97 03/03/17 20:00 03/04/17 04:00 03/04/17 04:00 03/04/17 04:00 03/04/17 04:00 Microbiology 03/01/17 21:00 Urine Culture - Final Urine,Clean Catch Enterococcus Species Two [place] Types Laboratory Results 03/04/17 05:30 03/04/17 05:30 03/03/17 03/04/17 03/05/17 05:59 05:59 05:59 Intake Total 3292 836 Output Total 7540 3330 Balance -358 -2494 PT 16.1 SEC (12.0-15.0) H 03/01/17 03:25 INR 1.29 (0.83-1.16) H 03/01/17 03:25 ICD10 Worksheet Patient Problems: Problems Problem Status Onset Anemia Acute GI bleed Acute Syncope Acute Arthritis of right hip Acute
[2017-03-04] MEDS ORDERED: POTASSIUM CL 10 MEQ TAB PO ONE ×2 (08:23→22:23)
--- NOTE | 2017-03-04 08:46 | HOSPPROG ---
Hospitalist Progress Note Assessment/Plan: * GIST. New diagnosis * Status post resection, diet advancing * Will follow up with Dr. Lebron * upper GI bleed secondary to above/acute blood loss anemia * Status post 7 units of packed red blood cells * Stable hg * Thrombocytopenia * Stable, probably consumptive * Continue to follow * Acute diastolic CHF exacerbation * 2/2 volume w/ resuscitation + diastolic dysfunction and mitral regurgitation * Continue Lasix today, good diuresis yesterday * Keep Mackey another day * hypotension * Resolved * asymptomatic bacteriuria Subjective: Feels okay. No new complaints Objective: Vital Signs Temp Pulse Resp BP Pulse Ox 37.2 C 70 14 122/59 H 98 03/04/17 08:00 03/04/17 08:00 03/04/17 08:00 03/04/17 08:00 03/04/17 08:00 Microbiology 03/01/17 21:00 Urine Culture - Final Urine,Clean Catch Enterococcus Species Two [place] Types Laboratory Results 03/04/17 05:30 03/04/17 05:30 03/03/17 03/04/17 03/05/17 05:59 05:59 05:59 Intake Total 3292 836 Output Total 3650 3330 Balance -358 -2494 PT 16.1 SEC (12.0-15.0) H 03/01/17 03:25 INR 1.29 (0.83-1.16) H 03/01/17 03:25 Tele personally viewed interpreted normal sinus rhythm Chest x-ray personally viewed interpreted mild fluid overload - Physical Exam Constitutional: no apparent distress, appears nourished, not in pain Eyes: anicteric sclera, EOMI Ears, Nose, Mouth, Throat: moist mucous membranes, hearing normal, ears appear normal Cardiovascular: regular rate and rhythym, no murmur, rub, or gallop Respiratory: no respiratory distress, no rales or rhonchi, clear to auscultation Gastrointestinal: normoactive bowel sounds, tenderness (Mild), distension Genitourinary: mackey in urethra Skin: warm Neurologic: AAOx3 Psychiatric: interacting appropriately, not anxious, not encephalopathic, thought process linear ICD10 Worksheet Patient Problems: Problems Problem Status Onset Anemia Acute GI bleed Acute Syncope Acute Arthritis of right hip Acute
[2017-03-04] MEDS: HYDROmorphONE/DILAUDID 6 MG/30 ML PCA IV PRN (09:05)
[2017-03-04] MEDS: FUROSEMIDE 40 MG/4 ML VIAL IVP SCH (09:08)
[2017-03-04] MEDS: PANTOPRAZOLE SODIUM 40 MG TAB PO SCH ×2 (09:08→19:18)
[2017-03-04] MEDS ORDERED: HYDROmorphONE/DILAUDID 1 MG/ML SYR IVP PRN (13:21)
[2017-03-04] MEDS: OXYCODONE/APAP 5/325 TAB PO PRN ×2 (13:26→23:43)
[2017-03-04 18:24] LABS: POTASSIUM 3.3 mEq/L (3.5-5.2)
[2017-03-05 05:50] LABS: % IMMATURE GRANULYOCYTES 2.4 % (0.0-1.1); ABSOLUTE IMMATURE GRANULOCYTES 0.19 10^3/uL (0.00-0.10); ABSOLUTE NRBC COUNT 0.02 10^3/uL (0-0.01); ADD DIFF? NO; ADD MORPH? NO; ADD SCAN? YES; ATYPICAL LYMPHOCYTE FLAG 20 (0-99); FRAGMENT RBC FLAG 0 (0-99); HEMATOCRIT 28.8 % (38.0-47.0); HEMOGLOBIN 9.6 g/dL (12.6-16.3); LEFT SHIFT FLG 20 (0-99); LIPEMIA HEMOLYSIS FLAG 80 (0-99); MEAN CELL HEMOGLOBIN 29.7 pg (27.9-34.1); MEAN CELL HEMOGLOBIN CONCENTR. 33.3 g/dL (32.4-36.7); MEAN CELL VOLUME 89.2 fL (81.5-99.8); MEAN PLATELET VOLUME 10.7 fL (8.7-11.7); NRBC-AUTO% 0.3 % (0.0-0.2); PLATELET COUNT 117 10^3/uL (150-400); RED BLOOD CELL COUNT 3.23 10^6/uL (4.18-5.33); RED CELL DISTRIBUTION WIDTH 17.4 % (11.5-15.2)
[2017-03-05 05:53] LABS: PLATELET CLUMPS FLAG 300 (0-99)
[2017-03-05 06:02] LABS: POTASSIUM 3.5 mEq/L (3.5-5.2)
[2017-03-05 06:38] LABS: SCAN NEGATIVE
--- NOTE | 2017-03-05 08:01 | SOAPPROG ---
SOAP Progress Note Assessment/Plan: Assessment: s/p resection of bleeding GIST Tolerated solid food yesterday H/H improved Need to work on getting her home/to SNF - mackey, O2, Still on O2 Encouraged transition to po pain meds - S: Sleeping but easily arousable O: BS present, soft, appropriately tender, incision cdi Plan: 03/04/17 07:43 03/04/17 13:16 03/05/17 07:59 Objective: Vital Signs Temp Pulse Resp BP Pulse Ox 36.6 C 59 L 12 116/67 98 03/04/17 20:00 03/05/17 04:00 03/05/17 04:00 03/05/17 04:00 03/05/17 04:00 Laboratory Results 03/05/17 05:15 03/05/17 05:15 03/04/17 03/05/17 03/06/17 05:59 05:59 05:59 Intake Total 836 2574 Output Total 3330 3600 Balance -2494 -1026 PT 16.1 SEC (12.0-15.0) H 03/01/17 03:25 INR 1.29 (0.83-1.16) H 03/01/17 03:25 ICD10 Worksheet Patient Problems: Problems Problem Status Onset Anemia Acute GI bleed Acute Syncope Acute Arthritis of right hip Acute
[2017-03-05] MEDS: PANTOPRAZOLE SODIUM 40 MG TAB PO SCH ×2 (08:44→21:39)
[2017-03-05] MEDS: OXYCODONE/APAP 5/325 TAB PO PRN ×3 (08:44→21:39)
[2017-03-05] MEDS: FUROSEMIDE 40 MG/4 ML VIAL IVP SCH (08:44)
[2017-03-05] MEDS ORDERED: POTASSIUM CL 10 MEQ TAB PO ONE (08:55)
--- NOTE | 2017-03-05 10:47 | HOSPPROG ---
Hospitalist Progress Note Assessment/Plan: * GIST. New diagnosis * Status post resection, diet advancing * Will follow up with Dr. Lebron * upper GI bleed secondary to above/acute blood loss anemia * Status post 7 units of packed red blood cells * Stable hg * Thrombocytopenia * Stable, probably consumptive * Continue to follow * Acute diastolic CHF exacerbation * 2/2 volume w/ resuscitation + diastolic dysfunction and mitral regurgitation * Continue Lasix today, good diuresis yesterday * DC Avina and Lasix * hypotension * Resolved * asymptomatic bacteriuria * disposition - rehab possibly tomorrow Subjective: Feels good today. Eating. No new complaints Objective: Vital Signs Temp Pulse Resp BP Pulse Ox 36.4 C 82 18 111/57 L 90 L 03/05/17 10:42 03/05/17 10:42 03/05/17 10:42 03/05/17 10:42 03/05/17 10:42 Laboratory Results 03/05/17 05:15 03/05/17 05:15 03/04/17 03/05/17 03/06/17 05:59 05:59 05:59 Intake Total 836 2574 Output Total 3330 3600 1850 Balance -2494 -1026 -1850 PT 16.1 SEC (12.0-15.0) H 03/01/17 03:25 INR 1.29 (0.83-1.16) H 03/01/17 03:25 - Physical Exam Constitutional: no apparent distress, appears nourished, not in pain Eyes: anicteric sclera, EOMI Ears, Nose, Mouth, Throat: moist mucous membranes, hearing normal Cardiovascular: regular rate and rhythym Respiratory: no respiratory distress, no rales or rhonchi, clear to auscultation Gastrointestinal: normoactive bowel sounds, soft, non-tender abdomen, no palpable masses Skin: warm Neurologic: AAOx3 Psychiatric: interacting appropriately, not anxious, not encephalopathic, thought process linear ICD10 Worksheet Patient Problems: Problems Problem Status Onset Anemia Acute GI bleed Acute Syncope Acute Arthritis of right hip Acute
[2017-03-06 07:55] LABS: % IMMATURE GRANULYOCYTES 1.1 % (0.0-1.1); ABSOLUTE IMMATURE GRANULOCYTES 0.08 10^3/uL (0.00-0.10); ADD DIFF? NO; ADD MORPH? NO; ADD SCAN? NO; ATYPICAL LYMPHOCYTE FLAG 30 (0-99); FRAGMENT RBC FLAG 0 (0-99); HEMOGLOBIN 9.9 g/dL (12.6-16.3); LEFT SHIFT FLG 10 (0-99); LIPEMIA HEMOLYSIS FLAG 80 (0-99); MEAN CELL HEMOGLOBIN 29.7 pg (27.9-34.1); MEAN CELL VOLUME 90.1 fL (81.5-99.8); MEAN PLATELET VOLUME 10.2 fL (8.7-11.7); PLATELET CLUMPS FLAG 0 (0-99); PLATELET COUNT 146 10^3/uL (150-400); RED BLOOD CELL COUNT 3.33 10^6/uL (4.18-5.33)
[2017-03-06 08:09] LABS: ANION GAP 4 mEq/L (8-16); CALCIUM 8.2 mg/dL (8.5-10.4); CARBON DIOXIDE 29 mEq/l (22-31); CHLORIDE 104 mEq/L (97-110); CREATININE 0.6 mg/dL (0.6-1.0); GLOMERULAR FILTRATION RATE > 60; GLUCOSE 87 mg/dL (70-100); POTASSIUM 3.6 mEq/L (3.5-5.2); SODIUM 137 mEq/L (134-144)
[2017-03-06] MEDS: PANTOPRAZOLE SODIUM 40 MG TAB PO SCH ×2 (08:20→21:44)
--- NOTE | 2017-03-06 11:13 | HOSPPROG ---
Hospitalist Progress Note Assessment/Plan: * GIST. New diagnosis * Status post resection, diet advancing * Will follow up with Dr. Lebron * upper GI bleed secondary to above/acute blood loss anemia * Status post 7 units of packed red blood cells * Stable hg * Some residual bleeding but could be old blood * Thrombocytopenia * Stable, probably consumptive * Continue to follow * Acute diastolic CHF exacerbation * 2/2 volume w/ resuscitation + diastolic dysfunction and mitral regurgitation * She would rather not have any more Lasix * dysuria * Check UA * Did have bacteriuria recently * Probably start on some course of antibiotics after UA * hypotension * Resolved * disposition - rehab possibly tomorrow Subjective: Having some bloody bowel movements. Complaining of urgency and frequency Objective: Vital Signs Temp Pulse Resp BP Pulse Ox 36.5 C 69 16 120/76 93 03/06/17 08:25 03/06/17 08:25 03/06/17 08:25 03/06/17 08:25 03/06/17 08:25 Laboratory Results 03/06/17 07:45 03/06/17 07:45 03/05/17 03/06/17 03/07/17 05:59 05:59 05:59 Intake Total 2574 1000 Output Total 3600 4850 800 Balance -1026 -3850 -800 PT 16.1 SEC (12.0-15.0) H 03/01/17 03:25 INR 1.29 (0.83-1.16) H 03/01/17 03:25 - Physical Exam Constitutional: no apparent distress, appears nourished, not in pain Eyes: anicteric sclera, EOMI Ears, Nose, Mouth, Throat: moist mucous membranes, hearing normal Cardiovascular: regular rate and rhythym, no murmur, rub, or gallop, edema (1+) Respiratory: no respiratory distress Gastrointestinal: normoactive bowel sounds, soft, non-tender abdomen, no palpable masses Skin: warm Neurologic: AAOx3 Psychiatric: interacting appropriately, not anxious, not encephalopathic, thought process linear ICD10 Worksheet Patient Problems: Problems Problem Status Onset Anemia Acute GI bleed Acute Syncope Acute Arthritis of right hip Acute
[2017-03-06 13:04] LABS: COLOR YELLOW; LEUKOCYTE ESTERASE,URINE 2+ (NEGATIVE); NITRITE,URINE NEGATIVE (NEGATIVE)
[2017-03-06 13:08] LABS: BACTERIA TRACE /hpf (NONE SEEN); WBC,URINE 25-50 /hpf (0-3)
[2017-03-06] MEDS: AMOXICILLIN/CLAVULANATE POT 875/125 MG TAB PO SCH ×2 (16:30→21:44)
--- NOTE | 2017-03-06 17:00 | SOAPPROG ---
SOAP Progress Note Assessment/Plan: Assessment: s/p resection of bleeding GIST Tolerating diet May discharge to SNF from surgical perspective H/H stable Encouraged transition to po pain meds - S: Alert and sitting in chair, just out of shower O: BS present, soft, appropriately tender, incision cdi Plan: 03/04/17 07:43 03/04/17 13:16 03/05/17 07:59 03/06/17 16:59 Objective: Vital Signs Temp Pulse Resp BP Pulse Ox 36.7 C 75 16 135/73 H 93 03/06/17 12:45 03/06/17 12:45 03/06/17 12:45 03/06/17 12:45 03/06/17 12:45 Laboratory Results 03/06/17 07:45 03/06/17 07:45 03/05/17 03/06/17 03/07/17 05:59 05:59 05:59 Intake Total 2574 1000 Output Total 3600 4850 800 Balance -1026 -9410 -800 PT 16.1 SEC (12.0-15.0) H 03/01/17 03:25 INR 1.29 (0.83-1.16) H 03/01/17 03:25 ICD10 Worksheet Patient Problems: Problems Problem Status Onset Anemia Acute GI bleed Acute Syncope Acute Arthritis of right hip Acute
[2017-03-06] MEDS: OXYCODONE/APAP 5/325 TAB PO PRN (21:44)
[2017-03-07 06:43] LABS: ABSOLUTE IMMATURE GRANULOCYTES 0.06 10^3/uL (0.00-0.10); ADD DIFF? NO; ADD MORPH? NO; ADD SCAN? NO; ATYPICAL LYMPHOCYTE FLAG 20 (0-99); FRAGMENT RBC FLAG 0 (0-99); HEMATOCRIT 32.4 % (38.0-47.0); HEMOGLOBIN 10.5 g/dL (12.6-16.3); LEFT SHIFT FLG 0 (0-99); LIPEMIA HEMOLYSIS FLAG 80 (0-99); MEAN CELL HEMOGLOBIN 29.4 pg (27.9-34.1); MEAN CELL HEMOGLOBIN CONCENTR. 32.4 g/dL (32.4-36.7); MEAN CELL VOLUME 90.8 fL (81.5-99.8); MEAN PLATELET VOLUME 9.2 fL (8.7-11.7); PLATELET CLUMPS FLAG 0 (0-99); PLATELET COUNT 172 10^3/uL (150-400); RED BLOOD CELL COUNT 3.57 10^6/uL (4.18-5.33)
[2017-03-07 06:54] LABS: ANION GAP 6 mEq/L (8-16); CALCIUM 8.6 mg/dL (8.5-10.4); CARBON DIOXIDE 28 mEq/l (22-31); CHLORIDE 107 mEq/L (97-110); CREATININE 0.7 mg/dL (0.6-1.0); GLOMERULAR FILTRATION RATE > 60; GLUCOSE 91 mg/dL (70-100); MAGNESIUM 2.1 mg/dL (1.6-2.3); SODIUM 141 mEq/L (134-144)
[2017-03-07] MEDS: PANTOPRAZOLE SODIUM 40 MG TAB PO SCH (10:26)
[2017-03-07] MEDS: AMOXICILLIN/CLAVULANATE POT 875/125 MG TAB PO SCH (10:26)
--- NOTE | 2017-03-07 13:06 | HOSPPROG ---
Hospitalist Progress Note Assessment/Plan: * GIST. New diagnosis * Status post resection, diet advancing * Will follow up with Dr. Lebron * upper GI bleed secondary to above/acute blood loss anemia * Status post 7 units of packed red blood cells * Stable hg * Some residual bleeding but could be old blood * Thrombocytopenia * Stable, probably consumptive * Continue to follow * Acute diastolic CHF exacerbation * 2/2 volume w/ resuscitation + diastolic dysfunction and mitral regurgitation * She would rather not have any more Lasix * dysuria * Probable urinary tract infection * Did not seem to be improved with a few doses of Augmentin * Will get culture on yesterday's urine * Switched to IV ceftriaxone * hypotension * Resolved * disposition - rehab possibly tomorrow Subjective: Still having urinary frequency. Some dark blood in the bowel movement still Objective: Vital Signs Temp Pulse Resp BP Pulse Ox 36.8 C 74 18 117/74 92 03/07/17 11:47 03/07/17 11:47 03/07/17 11:47 03/07/17 11:47 03/07/17 11:47 Microbiology 03/01/17 09:15 Blood Culture - Final Blood Laboratory Results 03/07/17 06:38 03/07/17 06:38 03/06/17 03/07/17 03/08/17 05:59 05:59 05:59 Intake Total 1000 1700 350 Output Total 4850 3150 Balance -3850 -1450 350 PT 16.1 SEC (12.0-15.0) H 03/01/17 03:25 INR 1.29 (0.83-1.16) H 03/01/17 03:25 - Physical Exam Constitutional: no apparent distress, appears nourished, not in pain Eyes: anicteric sclera, EOMI Ears, Nose, Mouth, Throat: moist mucous membranes, hearing normal Cardiovascular: edema (1+) Respiratory: no respiratory distress Gastrointestinal: normoactive bowel sounds, soft, non-tender abdomen, no palpable masses Skin: warm Neurologic: AAOx3 Psychiatric: interacting appropriately, not anxious, not encephalopathic, thought process linear ICD10 Worksheet Patient Problems: Problems Problem Status Onset Anemia Acute GI bleed Acute Syncope Acute Arthritis of right hip Acute
--- NOTE | 2017-03-07 13:39 | SOAPPROG ---
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 VS STABLE/ HCT 16 BUT BEING TRANSFUSED ALERT COOPERATIVE/ RISKS AND OPTIONS FULLY DISCUSSED/ WILL NEED PARTIAL GASTRECTOMY IN AM NONICTERIC/ CHEST CLEAR/ COR RR/ ABD SOFT Plan:SURGERY IN AM / TRANSFUSE TONITE 02/27/17 19:15 02/28/17 05:29 PT REBLED THIS AM/ HYPOTENSIVE/ LETHARGIC/ DECREASED UO PALE/ DRY MUCUS MEMBRANES/ NONICTERIC CHEST CLEAR/ COR RR ABD SOFT, NONTENDER/ EXTREMWEAK PULSES SKIN DRY/ NEURO LETHARGIC BUT SYMMETRIC WILL GO TO OR STAT / VOLUME RESUSCITATION NOW LEFT SUBCLAVIAN TRIPLE LUMEN PLACED RISKS AND OPTIONS FULLY DISCUSSED INCLUDING AND SHE AGREES WITH SURGERY 45 MIN CRITICAL CARE DONE 03/01/17 17:13 Vital signs stable/ patient alert and cooperative/ wound okay / urine output good / afebrile / hematocrit down to 21 / consider transfusion 03/02/17 09:43 alert comfortable/ wound okay/ hematocrit still low at 21 / no evidence of ongoing bleeding / NG drainage is clear / no bloody bowel movements / Abdomen is soft nontender with bowel sounds / positive flatus / plan is to clamp the NG and start on clear 03/03/17 19:41 DOING WELL/ STILL SOME BLOODY BMS/ VITAL SIGNS STABLE / HEMATOCRIT 33 / ABDOMEN SOFT AND WOUND OKAY / POSITIVE FLATUS AND BMS / TOLERATING P.O. 03/07/17 13:38 wound cdi/ +bms and flatus/ afebrile/ hct 31/ still some old blood in bms/ home soon Objective: Vital Signs Temp Pulse Resp BP Pulse Ox 36.8 C 74 18 117/74 92 03/07/17 11:47 03/07/17 11:47 03/07/17 11:47 03/07/17 11:47 03/07/17 11:47 Microbiology 03/01/17 09:15 Blood Culture - Final Blood Laboratory Results 03/07/17 06:38 03/07/17 06:38 03/06/17 03/07/17 03/08/17 05:59 05:59 05:59 Intake Total 1000 1700 350 Output Total 4850 3150 Balance -3850 -1450 350 PT 16.1 SEC (12.0-15.0) H 03/01/17 03:25 INR 1.29 (0.83-1.16) H 03/01/17 03:25 ICD10 Worksheet Patient Problems: Problems Problem Status Onset Anemia Acute GI bleed Acute Syncope Acute Arthritis of right hip Acute
[2017-03-08 06:13] LABS: % IMMATURE GRANULYOCYTES 0.8 % (0.0-1.1); ABSOLUTE IMMATURE GRANULOCYTES 0.05 10^3/uL (0.00-0.10); ADD DIFF? NO; ADD MORPH? NO; ADD SCAN? NO; ATYPICAL LYMPHOCYTE FLAG 40 (0-99); FRAGMENT RBC FLAG 0 (0-99); HEMATOCRIT 31.8 % (38.0-47.0); HEMOGLOBIN 10.3 g/dL (12.6-16.3); LEFT SHIFT FLG 0 (0-99); LIPEMIA HEMOLYSIS FLAG 80 (0-99); MEAN CELL HEMOGLOBIN 29.8 pg (27.9-34.1); MEAN CELL HEMOGLOBIN CONCENTR. 32.4 g/dL (32.4-36.7); MEAN CELL VOLUME 91.9 fL (81.5-99.8); PLATELET CLUMPS FLAG 20 (0-99); PLATELET COUNT 181 10^3/uL (150-400); RED BLOOD CELL COUNT 3.46 10^6/uL (4.18-5.33); RED CELL DISTRIBUTION WIDTH 16.6 % (11.5-15.2)
[2017-03-08 06:56] LABS: ANION GAP 6 mEq/L (8-16); CALCIUM 8.5 mg/dL (8.5-10.4); CARBON DIOXIDE 26 mEq/l (22-31); CHLORIDE 107 mEq/L (97-110); CREATININE 0.7 mg/dL (0.6-1.0); GLOMERULAR FILTRATION RATE > 60; GLUCOSE 91 mg/dL (70-100); MAGNESIUM 2.1 mg/dL (1.6-2.3); POTASSIUM 4.2 mEq/L (3.5-5.2); SODIUM 139 mEq/L (134-144)
[2017-03-08] MEDS: PANTOPRAZOLE SODIUM 40 MG TAB PO SCH (09:16)
--- NOTE | 2017-03-08 11:32 | SOAPPROG ---
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 VS STABLE/ HCT 16 BUT BEING TRANSFUSED ALERT COOPERATIVE/ RISKS AND OPTIONS FULLY DISCUSSED/ WILL NEED PARTIAL GASTRECTOMY IN AM NONICTERIC/ CHEST CLEAR/ COR RR/ ABD SOFT Plan:SURGERY IN AM / TRANSFUSE TONITE 02/27/17 19:15 02/28/17 05:29 PT REBLED THIS AM/ HYPOTENSIVE/ LETHARGIC/ DECREASED UO PALE/ DRY MUCUS MEMBRANES/ NONICTERIC CHEST CLEAR/ COR RR ABD SOFT, NONTENDER/ EXTREMWEAK PULSES SKIN DRY/ NEURO LETHARGIC BUT SYMMETRIC WILL GO TO OR STAT / VOLUME RESUSCITATION NOW LEFT SUBCLAVIAN TRIPLE LUMEN PLACED RISKS AND OPTIONS FULLY DISCUSSED INCLUDING AND SHE AGREES WITH SURGERY 45 MIN CRITICAL CARE DONE 03/01/17 17:13 Vital signs stable/ patient alert and cooperative/ wound okay / urine output good / afebrile / hematocrit down to 21 / consider transfusion 03/02/17 09:43 alert comfortable/ wound okay/ hematocrit still low at 21 / no evidence of ongoing bleeding / NG drainage is clear / no bloody bowel movements / Abdomen is soft nontender with bowel sounds / positive flatus / plan is to clamp the NG and start on clear 03/03/17 19:41 DOING WELL/ STILL SOME BLOODY BMS/ VITAL SIGNS STABLE / HEMATOCRIT 33 / ABDOMEN SOFT AND WOUND OKAY / POSITIVE FLATUS AND BMS / TOLERATING P.O. 03/07/17 13:38 wound cdi/ +bms and flatus/ afebrile/ hct 31/ still some old blood in bms/ home soon 03/08/17 11:31 CONTINUES TO DO WELL / NO FURTHER BLEEDING/ HEMATOCRIT STABLE / WOUND OKAY/ URINE OUTPUT GREAT / VITAL SIGNS STABLE / TO SNF TODAY / FOLLOW-UP NEXT WEEK IN THE OFFICE FOR [facility] Objective: Vital Signs Temp Pulse Resp BP Pulse Ox 36.6 C 64 18 133/66 H 97 03/08/17 08:00 03/08/17 08:00 03/08/17 08:00 03/08/17 08:00 03/08/17 08:00 Microbiology 03/01/17 09:15 Blood Culture - Final Blood Laboratory Results 03/08/17 05:31 03/08/17 05:31 03/07/17 03/08/17 03/09/17 05:59 05:59 05:59 Intake Total 1700 1900 Output Total 3150 2500 Balance -1450 -600 PT 16.1 SEC (12.0-15.0) H 03/01/17 03:25 INR 1.29 (0.83-1.16) H 03/01/17 03:25 ICD10 Worksheet Patient Problems: Problems Problem Status Onset Anemia Acute GI bleed Acute Syncope Acute Arthritis of right hip Acute
[2017-03-08] MEDS: CEFEPIME HCL 1 GM in D5W 50 ML IV SCH ×2 (11:50→20:26)
--- NOTE | 2017-03-08 13:14 | HOSPPROG ---
Hospitalist Progress Note Assessment/Plan: 66-year-old admitted for massive upper GI bleed. Was found to have GIST tumor which was resected by Dr. Vincent * GIST. New diagnosis * Status post resection, diet advancing * Will follow up with Dr. Leborn * upper GI bleed secondary to above/acute blood loss anemia * Status post 7 units of packed red blood cells * Stable hg * Some residual bleeding but could be old blood * Thrombocytopenia * Stable, probably consumptive * Continue to follow * Acute diastolic CHF exacerbation * 2/2 volume w/ resuscitation + diastolic dysfunction and mitral regurgitation * She would rather not have any more Lasix * catheter associated urinary tract infection * Did not seem to be improved with a few doses of Augmentin or dose of ceftriaxone yesterday * culture shows gram-negative non lactose fermenting rods. discussed with Infectious Disease. does not look to be Pseudomonas by initial id. * will switch to cefepime today and continue to monitor * hypotension * Resolved * disposition - rehab possibly tomorrow if dysuria improved Subjective: Still with significant symptoms of urinary frequency and urgency. eating well. No other complaints Objective: Vital Signs Temp Pulse Resp BP Pulse Ox 36.7 C 64 16 117/64 93 03/08/17 12:00 03/08/17 12:00 03/08/17 12:00 03/08/17 12:00 03/08/17 12:00 Laboratory Results 03/08/17 05:31 03/08/17 05:31 03/07/17 03/08/17 03/09/17 05:59 05:59 05:59 Intake Total 1700 1900 Output Total 3150 2500 Balance -1450 -600 PT 16.1 SEC (12.0-15.0) H 03/01/17 03:25 INR 1.29 (0.83-1.16) H 03/01/17 03:25 discussed the case with Infectious Disease, microbiology data reviewed - Physical Exam Constitutional: no apparent distress, appears nourished, not in pain Eyes: anicteric sclera, EOMI Ears, Nose, Mouth, Throat: moist mucous membranes, hearing normal, ears appear normal Cardiovascular: regular rate and rhythym, no murmur, rub, or gallop, edema ( trace) Respiratory: no respiratory distress, no rales or rhonchi, clear to auscultation Gastrointestinal: normoactive bowel sounds, soft, non-tender abdomen, no palpable masses Skin: warm Neurologic: AAOx3 Psychiatric: interacting appropriately, not anxious, not encephalopathic, thought process linear ICD10 Worksheet Patient Problems: Problems Problem Status Onset Anemia Acute GI bleed Acute Syncope Acute Arthritis of right hip Acute
[2017-03-09] MEDS: PANTOPRAZOLE SODIUM 40 MG TAB PO SCH (08:36)
[2017-03-09] MEDS: CEFEPIME HCL 1 GM in D5W 50 ML IV SCH (08:36)
[2017-03-09 11:54] VITALS: RESP 16
--- NOTE | 2017-03-09 14:39 | GDS ---
[f rep st] DISCHARGE SUMMARY DISCHARGE DIAGNOSES: 1. Upper gastrointestinal bleed due to a gastrointestinal stromal tumor newly diagnosed. 2. Acute blood loss anemia status post 7 units of packed red blood cells. Currently hemodynamicall y stable. 3. Thrombocytopenia. 4. Acute diastolic heart failure exacerbation, resolved. 5. Catheter-associated urinary tract infection growing Pseudomonas. 6. Resolved hypotension. CONSULTANTS: 1. Dr. Jasen Vincent, General Surgery. 2. Pulmonary Critical Care, Dr. Levi. HOSPITAL COURSE BY PROBLEM: 1. Acute blood loss anemia secondary to upper gastrointestinal bleed from a GIST tumor: Patient pr esented to the hospital on 02/27/2017 with recurrent syncope and dizziness in the setting of melena. She was seen in consultation by Dr. Angel Johnson from [facility] who placed her on a Protonix drip. She was transfused 3 units of blood. Endoscopy done on 02/27/2017 showed a large mass. Dr. Vincent was consulted who took the patient to the operating room on 02/28/2017 where she underwent a laparotomy with partial gastrectomy, resecting a large gastrointestinal stromal tumor. Postoperativ preeti the patient was severely anemic and has received in total 9 units of packed red blood cells, and 1 unit of FFP. On the day of discharge, the patient's H and H appears to have stabilized. She has been seen by Dr. Vincent who is recommending that she follow up in the office next week for staple re moval. 2. Catheter-associated urinary tract infection: The patient has been having urinary frequency ever since her Avina catheter was removed. She was initially started on Augmentin and then received a d ose of ceftriaxone on 03/07/2017. Despite the ceftriaxone she has continued to have urinary symptom s with frequency but no dysuria. Repeat urine culture done on March 07, 2017 has since grown Pseudomo parker. She was started on cefepime, which does have good activity against Pseudomonas, on 03/08/2017. At this time, the plan is for her to continue cefepime to complete a 7-day course. Cefepime can p ossibly be deescalated once her final culture results are back at which time an oral antibiotic such as Cipro with pseudomonal activity may be appropriate. PHYSICAL EXAM: VITAL SIGNS: On day of discharge blood pressure 114/66, pulse 75, respiratory rate 16, O2 saturation 96% on room air. Temperature afebrile. GENERAL: No acute distress. HEART S1, S 2. LUNGS: Clear. ABDOMEN: Soft. EXTREMITIES: No edema. PERTINENT LABS AND STUDIES DONE THIS HOSPITAL STAY: Upper endoscopy done 02/27/[address] Johnson: Kelvin jefferson to report. Echocardiogram done 03/01/2017: Refer to report. PROCEDURES DONE THIS HOSPITAL STAY: Partial gastrectomy done by Dr. iVncent on 02/28/2017: Refer to report. DISCHARGE MEDICATIONS: Please refer to discharge medication reconciliation in [facility] for details. DISCHARGE INSTRUCTIONS: The patient will be transferred to the [facility] for further rehabilitation . Once again, she should follow up with Dr. Vincent next week for staple removal. She will need foll owup of her pending urine culture results to further determine the course of her antibiotics. For n ow, I am recommending that she complete a 7-day course of cefepime which once again can possibly be deescalated pending the results of her culture. Greater than 30 minutes were spent on the discharge of this patient. /[id number]/MODL
--- NOTE | 2017-03-09 15:27 | PDIAF ---
- Diagnosis Diagnosis: GIST Tumor/Anemia/Pseudomonas UTI Code Status: Full Code - Medication Management Discharge Medications: Medications to Continue on Transfer Cefepime HCl [Maxipime] 1 gm IV Q12HRS #0 vial 03/09/17 [Last Taken Unknown] Shelter Antibiotic Stop Date: 03/15/17 Discharge Medications: Refer to the Discharge Home Medication list for PRN reason. - Orders Services needed: Registered Nurse, Physical Therapy, Occupational Therapy Diet Recommendation: no restrictions on diet Diet Texture: Regular Texture Diet - Follow Up Care Current Providers and Referrals: UNKNOWN,UNKNOWN [Unknown] - As per Instructions
[2017-03-09 15:31] VITALS: BP 119/66; PULSE 92; TEMP 97.5; O2SAT 99
--- NOTE | 2017-03-09 16:27 | PDIAF ---
- Diagnosis Diagnosis: GIST Tumor/Anemia/Pseudomonas UTI Code Status: Full Code - Medication Management Discharge Medications: Medications to Continue on Transfer Cefepime HCl [Maxipime] 1 gm IV Q12HRS #0 vial 03/09/17 [Last Taken Unknown] Pantoprazole Sodium [Protonix 40mg (*)] 40 mg PO DAILY #0 tab 03/09/17 [Last Taken Unknown] oxyCODONE/APAP 5/325 [Percocet 5/325 (*)] 1 - 2 tab PO Q4HRS PRN #0 tab [Last Taken Unknown] Prison Antibiotic Stop Date: 03/15/17 Discharge Medications: Refer to the Discharge Home Medication list for PRN reason. - Orders Services needed: Registered Nurse, Physical Therapy, Occupational Therapy Diet Recommendation: no restrictions on diet Diet Texture: Regular Texture Diet - Follow Up Care Current Providers and Referrals: UNKNOWN,UNKNOWN [Unknown] - As per Instructions
== END 2017-03-09 16:47 | DRG 981 ==
LOC: CED 11:15 → CEDHOLD 12:11 → F2N 16:35 → F1N 03-05 10:36
PROVIDERS: ADMIT Internal Medicine; ATTEND Internal Medicine
PROC: 0DJ08ZZ Inspection of Upper Intestinal Tract, Via Natural or Artificial Opening Endoscopic (ICD-10-PCS; 2017-02-27)
PROC: 30233N1 Transfusion of Nonautologous Red Blood Cells into Peripheral Vein, Percutaneous Approach (ICD-10-PCS; 2017-02-27)
PROC: 30233L1 Transfusion of Nonautologous Fresh Plasma into Peripheral Vein, Percutaneous Approach (ICD-10-PCS; 2017-02-28)
PROC: 0DB60ZZ Excision of Stomach, Open Approach (ICD-10-PCS; principal; 2017-02-28 06:15)
DX: C49.A2 Gastrointestinal stromal tumor of stomach (principal); T83.518A Infection and inflammatory reaction due to other urinary catheter, initial encounter; I50.31 Acute diastolic (congestive) heart failure; D62 Acute posthemorrhagic anemia; K92.1 Melena; D69.6 Thrombocytopenia, unspecified; B96.5 Pseudomonas (aeruginosa) (mallei) (pseudomallei) as the cause of diseases classified elsewhere; Z96.641 Presence of right artificial hip joint; R73.9 Hyperglycemia, unspecified
CPT/HCPCS: 80053-PO; 82270-PO; 84484-PO; 85014-PO; 85018-PO; 85025-PO; 85610-PO; 85730-PO; 92526-GN; 92610-GN; 96365; 97110-GP; 97116-GP; 97162-GP; 97165-GO; 97530-GO; 97535-GO; G8978-GP-CK; G8979-GP-CI; G8987-GO-CL; G8988-GO-CJ; G8996-GN-CH; G8996-GN-CI; G8997-GN-CH; G8998-GN-CH; J0690; J0692; J0696; J1170; J1940; J2001; J2250; J2405; J2704; J3010; P9016; P9017; P9021

== ENCOUNTER → 2017-04-24 | Outpatient (CLI) | payer OTHER, BC | LOC: FIMAGING 15:08 | PROVIDERS: ATTEND Internal Medicine Hematology & Oncology | DX: C49.A0 Gastrointestinal stromal tumor, unspecified site (principal) ==

== ENCOUNTER → 2017-07-24 | Outpatient (CLI) | payer BC | LOC: CIMAGING 07:39 | PROVIDERS: ATTEND Family Medicine | DX: Z12.31 Encounter for screening mammogram for malignant neoplasm of breast (principal) | CPT/HCPCS: G0202 ==

== ENCOUNTER → 2017-07-31 | Outpatient (CLI) | payer BC | LOC: BRMIMAGING 10:54 | PROVIDERS: ATTEND Family Medicine | DX: Z13.820 Encounter for screening for osteoporosis (principal); M85.80 Other specified disorders of bone density and structure, unspecified site; Z78.0 Asymptomatic menopausal state ==

== ENCOUNTER → 2018-07-25 | Outpatient (CLI) | payer BC, OTHER | LOC: FIMAGING 08:51 | PROVIDERS: ATTEND Family Medicine | DX: Z12.31 Encounter for screening mammogram for malignant neoplasm of breast (principal) ==

== ENCOUNTER → 2018-09-25 | Outpatient (CLI) | payer BC | LOC: FIMAGING 10:18 | PROVIDERS: ATTEND Family Medicine | DX: Z13.820 Encounter for screening for osteoporosis (principal); M85.89 Other specified disorders of bone density and structure, multiple sites; Z78.0 Asymptomatic menopausal state; Z96.641 Presence of right artificial hip joint ==